=== PATIENT | female | born 1965 | race Caucasian/White ===

== ENCOUNTER 2024-01-19 13:07 | Emergency (ER) | payer MEDICARE, SELFPAY ==
--- NOTE | ~2024-01-19 | XR_ITS ---
EXAMINATION: XR abdomen gastric tube insert DATE: 01/19/2024 15:20 INDICATION: G-tube replacement TECHNIQUE: A supine view of the abdomen and lower chest was obtained for evaluation of feeding tube placement. COMPARISON: None. FINDINGS: Contrast opacifying the stomach having been injected through a previously placed gastrostomy tube wit h lucent filling defect corresponding to the bulb located in the body the stomach. Large amount of co lonic stool consistent with constipation. No dilated gas-filled loops of bowel to suggest obstruction . Suggestion of a suture line projecting along the lesser curvature of the stomach. IMPRESSION: 1. Percutaneous gastrostomy tube and injected contrast in the body the stomach. Reviewed, dictated and finalized at location B. TH AND WELLNESS COACH IMPRESSION: 1. Percutaneous gastrostomy tube and injected contrast in the body the stomach .
[2024-01-19 13:10] VITALS: BP 117/86; PULSE 83; RESP 18; TEMP 36.2; O2SAT 99
--- NOTE | 2024-01-19 13:49 | ED.GENADULT ---
HPI - General Adult General Chief complaint: Recheck/Abnormal Lab/Rx Stated complaint: gtube out Time Seen by Provider: 01/19/24 13:25 History of Present Illness HPI narrative: 58-year-old female presenting with G-tube issues. States that she has had the G-tube for at least 8 years. She has noticed it leaking around the insertion site for the last several days. States this happens whenever it needs to be replaced. Denies any pain or other concerns. Related Data Home Medications Medication Instructions Recorded Confirmed alprazolam 1 mg tablet (Xanax) 1 mg PO TID PRN 07/07/20 quetiapine 200 mg tablet (Seroquel) 200 mg PO QHS 07/07/20 Allergies Allergy/AdvReac Type Severity Reaction Status Date / Time Penicillins Allergy Intermediate rash, Verified 07/07/20 13:22 swelling Review of Systems Review of Systems: All systems reviewed & are unremarkable except as noted in HPI and below PMFSH Social History Social History Smoking status: Current some day smoker Alcohol intake: never Exam Narrative: GENERAL: Chronically ill-appearing, cachectic, cooperative HEAD: Normocephalic, atraumatic. EYES: PERRLA and EOMI. ENT: . Mucous membranes moist. NECK: Supple. CHEST: No respiratory distress. HEART: Regular rate and rhythm ABDOMEN: Soft, G-tube in place, no tenderness EXTREMITIES: Normal range of motion. SKIN: Warm, dry, no rash. NEURO: Alert and oriented x3. PSYCH: Normal mood and affect. Course Vital Signs Vital signs: Vital Signs Temperature 97.2 F L 01/19/24 13:10 Pulse Rate 83 01/19/24 13:10 Respiratory Rate 18 01/19/24 13:10 Blood Pressure 117/86 01/19/24 13:10 Pulse Oximetry 99 01/19/24 13:10 Temperature 97.2 F L 01/19/24 13:10 Pulse Rate 84 01/19/24 16:45 Respiratory Rate 18 01/19/24 16:45 Blood Pressure 115/88 01/19/24 16:45 Pulse Oximetry 99 01/19/24 16:45 Procedures Feeding Tube Replacement Feeding Tube #1: Feeding Tube Placement Date: 01/19/24 Feeding Tube Placement Time: 15:27 Type of Tube: gastrostomy Insertion Site Prior to Procedure: clean Balloon size (mL): 20 Verification of Placement: KUB and gastrografin injection Tube Secured by: tape/dressing Patient Tolerated Procedure: well and no complications Medical Decision Making MDM Narrative Medical decision making narrative: 58-year-old female presenting with leaking around her G-tube. Vitals stable. G-tube replaced without complication. X-ray confirms it is in the stomach. Patient is safe for outpatient management. Appropriate supportive care and return precautions discussed. Discharged in stable condition. Differential Diagnosis Differential Diagnosis: Leaking G-tube, G-tube complication Medical Records Medical records reviewed: Yes I reviewed the external patient's medical records. Vital Signs Vital Signs: Vital Signs Temperature 97.2 F L 01/19/24 13:10 Pulse Rate 83 01/19/24 13:10 Respiratory Rate 18 01/19/24 13:10 Blood Pressure 117/86 01/19/24 13:10 Pulse Oximetry 99 01/19/24 13:10 Temperature 97.2 F L 01/19/24 13:10 Pulse Rate 84 01/19/24 16:45 Respiratory Rate 18 01/19/24 16:45 Blood Pressure 115/88 01/19/24 16:45 Pulse Oximetry 99 01/19/24 16:45 Imaging Data Radiologist's impression: ITS Impressions Abdomen X-Ray 01/19/24 15:21 IMPRESSION: 1. Percutaneous gastrostomy tube and injected contrast in the body the stomach. Critical Care Time Critical Care Time Critical Care Time: No Discharge Plan Discharge Clinical Impression: Drainage from gastrostomy tube site Patient Disposition: NH Care Home/Asst Living Condition: Stable Instructions: Antibiotic Form, How to Use and Care for Your PEG Tube (DC) Additional Instructions: Please follow-up with your PCP. If your symptoms worsen or other concerning symptoms arise, please return to the ER. Prescriptions: No Action alprazolam [Xanax] 1 mg tablet 1 mg PO TID PRN quetiapine [Seroquel] 200 mg tablet 200 mg PO QHS hydrocodone-acetaminophen 7.5-325 mg tablet 1 tablet PO Q4H PRN (Reason: pain (scale score 7-10)) Qty: 84 0RF Rx Instructions: To last 14 days, due 11/22/2020 Follow-up/Referrals: UNKNOWN,DOCTOR [Primary Care Provider] -
--- NOTE | 2024-01-19 15:52 | PC.NURSE ---
20 F G tube replaced by Dr. Lopez.
--- NOTE | 2024-01-19 16:16 | PCCCNOTE ---
Call received from nursing staff for cab voucher as pt ready to discharge back to facility and the facility is no longer operating today. Cab voucher supplied for transportation back to [facility].
[2024-01-19 16:45] VITALS: BP 115/88; PULSE 84; RESP 18; O2SAT 99
== END 2024-01-19 16:48 ==
PROVIDERS: Emergency Provider Emergency Medicine
DX: K94.23 Gastrostomy malfunction (principal); F17.200 Nicotine dependence, unspecified, uncomplicated; Y83.3 Surgical operation with formation of external stoma as the cause of abnormal reaction of the patient, or of later complication, without mention of misadventure at the time of the procedure
CPT/HCPCS: 43762; 99283

== ENCOUNTER 2024-01-30 07:57 | Outpatient (CLI) | payer MEDICARE, SELFPAY ==
--- NOTE | ~2024-01-30 | XR_ITS ---
EXAMINATION: XR barium swallow modified DATE: 01/30/2024 08:51 INDICATION: Dysphagia. Achalasia. TECHNIQUE: The patient was given barium-containing material of multiple consistencies to swallow by t cynthia speech pathologist while I performed fluoroscopy. Fluoroscopy exposure time was 0.7 minutes. The n umber of fluoroscopy images saved to the PACS was 1. Dose-area product was 0.399 Gy-cm^2. FINDINGS: There is a reduced laryngeal elevation, reduced laryngeal adduction, reduced tongue base retraction, reduced pharyngeal squeeze, vallecular residue, pyriform sinus residue, and laryngeal penetration. Th ere is aspiration of thin liquids, mildly thick liquids, and pudding. IMPRESSION: 1. Aspiration. 2. Please refer to the speech therapy report for recommendations. Reviewed, dictated and finalized at location A. TATISTICIAN
--- NOTE | 2024-01-30 14:05 | REHSTMBS ---
Assessment and note entered by Ermelinda Minor SENIOR CLINICAL DATA ANALYST Modified Barium Swallow Evaluation Feeding Type Recommended Non-Oral ST Clinical Summary MODIFIED BARIUM SWALLOW STUDY This patient was seen for a Modified Barium Swallow study at the request of her physician. Patient did not report significant history but did state she had an esophageal issue for eight years. The patient reports she is on tube feedings but that she had been allowed warm drinks, that would go down easily, would not want [id number] foods such as chicken. Patient was viewed in the lateral position to the level of C5/C6. Patient was presented with 1/3-1/2 teaspoons of thin liquid contrast medium, mildly thick liquid contrast medium, and pudding mixed with semi-solid contrast medium. On each occasion, patient allowed material to fall over the base of tongue into the valleculae, and then spillover into the pyriform sinuses, with penetration leading all the way to the level of the vocal cords on each presentation. No cough was triggered however when asked to cough, some of the material did clear the airway. Testing was terminated. Results suggest this patient remains at significant risk for aspiration on oral feedings. Cause of weakness is unknown at this time. Results indicate patient should not resume oral feedings but may benefit from direct Speech Therapy to address strengthening of the swallowing muscles. Please order Speech Therapy for patient at [facility]. Thank you for this referral. Thank you for this referral.
== END 2024-01-30 07:58 | disposition home or self-care (01) ==
PROVIDERS: Visit Provider Internal Medicine
DX: K22.0 Achalasia of cardia (principal)
CPT/HCPCS: 92611

== ENCOUNTER 2024-05-10 14:17 | Emergency (ER) | payer MEDICARE, MEDICAID, SELFPAY ==
[2024-05-10] VITALS (14 sets, daily range): BP systolic 111–147; BP diastolic 68–100; PULSE 79–93; RESP 14–20; TEMP 36.5; O2SAT 95–99
--- NOTE | ~2024-05-10 | XR_ITS ---
Exam: Abdomen 1V HISTORY: 22f gastrostomy tube reinsertion, performed in the emergency department COMPARISON: 01/19/2024 TECHNIQUE: Supine images of the lower chest and upper abdomen FINDINGS: Gastrostomy tube extends into the left upper quadrant. Oral contrast opacifies the stomach and proximal small bowel IMPRESSION: Gastrostomy tube in good position and ready for immediate use. Reviewed, dictated and finalized at location A.
--- OUTSIDE RECORDS SUMMARY | 2024-05-10 17:38 | XMS_ITS | CONTINUITY OF CARE DOCUMENT ---
Author Name amy reyes Address Unknown Organization [facility] Address [address] [place] [address] Phone [phone] Care Team Providers Care Geoscientist Name Role Phone Ottoniel Peguero MD Unavailable JEB LA MD Unavailable [phone] INSURANCE PROVIDERS Payer name Policy type / Coverage type [place] [employer] Medicaid [id number]
--- NOTE | 2024-05-10 23:38 | ED_ITS ---
HPI - General Adult General Chief complaint: Unspecified Stated complaint: g-tube replacement Time Seen by Provider: 05/10/24 16:29 History of Present Illness HPI narrative: 59-year-old female presenting from long term facility for concerns of a malfunctioning and dislodged G-tube. Patient wears a 20 [place] G-tube normally, was malfunctioning and taken out today and a 24 [place] Miller catheter was placed to hold the stoma open. G-tube has been placed for 8 years without any recent manipulation. Last time this happened was 5 months prior according to patient. No other complaints at this time she was otherwise in her normal state of health and awake alert oriented. Related Data Home Medications ?Medication ?Instructions ?Recorded ?Confirmed ?Last Taken ?Type alprazolam 1 mg tablet (Xanax) 1 mg PO TID PRN 07/07/20 Unknown History quetiapine 200 mg tablet (Seroquel) 200 mg PO QHS 07/07/20 Unknown History Allergies Allergy/AdvReac Type Severity Reaction Status Date / Time Penicillins Allergy Intermediate rash, Verified 05/10/24 14:27 swelling gabapentin AdvReac Mild Hives Verified 05/10/24 14:27 simvastatin AdvReac Mild Unknown Verified 05/10/24 14:27 Review of Systems Review of Systems: As reviewed above in [facility] Social History Social History Smoking status: Current some day smoker Alcohol intake: never Exam Narrative: GENERAL: [Well-appearing, well-nourished, and in no acute distress.] HEAD: [Normocephalic, atraumatic.] EYES: [PERRLA and EOMI.] ENT: Nares clear, no rhinorrhea or epistaxis. Mucous membranes moist. NECK: Supple. CHEST: [Clear to auscultation. No respiratory distress.] HEART: [Regular rate and rhythm]. No murmur heard. [Normal peripheral pulses.] ABDOMEN: [Soft, nondistended], [nontender], [No rigidity or guarding] stoma without any erythema, bleeding. Twenty-four [place] Miller in place into the gastrostomy site EXTREMITIES: Normal range of motion. [No edema.] SKIN: Warm, dry, no rash. NEURO: [No focal deficits]. Alert and oriented [x3.] PSYCH: [Normal mood and affect.] Course Vital Signs Vital signs: Vital Signs Temperature 36.5 C 05/10/24 14:18 Pulse Rate 90 05/10/24 14:18 Respiratory Rate 19 05/10/24 14:18 Blood Pressure 133/96 H 05/10/24 14:18 Pulse Oximetry 97 05/10/24 14:18 Oxygen Delivery Room Air 05/10/24 14:18 Temperature 36.5 C 05/10/24 14:18 Pulse Rate 87 05/10/24 19:03 Respiratory Rate 17 05/10/24 19:03 Blood Pressure 147/96 H 05/10/24 17:30 Pulse Oximetry 98 05/10/24 19:03 Oxygen Delivery Room Air 05/10/24 14:18 Procedures Feeding Tube Replacement Feeding Tube #1: Feeding Tube Placement Date: 05/10/24 Feeding Tube Placement Time: 17:00 Type of Tube: gastrostomy Insertion Site Prior to Procedure: clean Tube Used for Reinsertion: other (Zumper) [place] Tube Size (F): 20 Balloon size (mL): 20 Verification of Placement: gastrografin injection Tube Secured by: tape/dressing Patient Tolerated Procedure: well and no complications Medical Decision Making MDM Narrative Medical decision making narrative: 59-year-old female presenting with a malfunctioned G-tube that was taken out at the nursing facility and a Miller replaced into the stoma site. No bleeding or irritation. No signs of infection. G-tube replaced without complication x-ray confirms its placement into the stomach. Patient is safe for outpatient follow- up with her doctor. Patient discharged with return precautions. Vital Signs Vital Signs: Vital Signs Temperature 36.5 C 05/10/24 14:18 Pulse Rate 90 05/10/24 14:18 Respiratory Rate 19 05/10/24 14:18 Blood Pressure 133/96 H 05/10/24 14:18 Pulse Oximetry 97 05/10/24 14:18 Oxygen Delivery Room Air 05/10/24 14:18 Temperature 36.5 C 05/10/24 14:18 Pulse Rate 87 05/10/24 19:03 Respiratory Rate 17 05/10/24 19:03 Blood Pressure 147/96 H 05/10/24 17:30 Pulse Oximetry 98 05/10/24 19:03 Oxygen Delivery Room Air 05/10/24 14:18 Imaging Data Attestation: I personally reviewed and interpreted this imaging study as follows: My impression: Impressions Abdomen X-Ray 05/10/24 17:46 IMPRESSION: Gastrostomy tube in good position and ready for immediate use. Discharge Plan Discharge Clinical Impression: Gastrojejunostomy tube dislodgement Patient Disposition: Home, Self-Care Condition: Stable Instructions: Antibiotic Form, PEG (Percutaneous Endoscopic Gastrostomy) Tube Insertion (DC) Additional Instructions: We have replaced her G-tube with a 20 [place] tube and confirmed displacement on x-ray. It can be used immediately upon return to her facility. Follow-up with regular doctor. Return with any new or worsening concerns at any time. Patient Language: Kinyarwanda Prescriptions: No Action alprazolam [Xanax] 1 mg tablet 1 mg PO TID PRN quetiapine [Seroquel] 200 mg tablet 200 mg PO QHS hydrocodone-acetaminophen 7.5-325 mg tablet 1 tablet PO Q4H PRN (Reason: pain (scale score 7-10)) Qty: 84 0RF Rx Instructions: To last 14 days, due 11/22/2020 Follow-up/Referrals: UNKNOWN,DOCTOR [Primary Care Provider] - Time of Disposition: 18:43
== END 2024-05-10 19:00 ==
PROVIDERS: Emergency Provider Student in an Organized Health Care Education/Training Program
DX: Z43.1 Encounter for attention to gastrostomy (principal); F17.200 Nicotine dependence, unspecified, uncomplicated; Z79.899 Other long term (current) drug therapy
CPT/HCPCS: 43762; 99283

== ENCOUNTER 2025-01-28 02:24 | Inpatient (IN) | payer MEDICARE, MEDICAID, SELFPAY ==
[2025-01-28] VITALS (22 sets, daily range): BP systolic 143–220; BP diastolic 98–132; PULSE 82–108; RESP 18–24; TEMP 36.4–36.9; O2SAT 95–99; BMI 23.0
--- NOTE | ~2025-01-28 | CT_ITS ---
EXAMINATION: CT abdomen pelvis w con DATE: 01/28/2025 04:39 INDICATION: Abdominal pain. TECHNIQUE: Computed tomography (CT) of the abdomen and pelvis was performed with 100 mL Omnipaque 350 intravenous contrast. Automated exposure control and iterative reconstruction technique were employed. The dose-length product was 233.52 mGy-cm. COMPARISON: None. FINDINGS: The visualized portions of the lung bases demonstrate mild atelectasis. No pleural effusion. There is fluid in the esophagus, which is patulous. There is wall thickening of the esophagus. There is a gastrostomy tube in expected position. There is mild intrahepatic biliary duct dilatation. The common duct is dilated to 16 mm. The gallbladder is absent. The pancreas demonstrates heterogeneous hypodensity. There is fat stranding and fluid around the pancreas, consistent with pancreatitis. The spleen and adrenal glands are normal. There is cortical thinning of the kidneys. There are no dilated loops of bowel. The appendix is normal. There are no pathologically enlarged lymph nodes. 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 There is severe lumbar spondylosis. IMPRESSION: 1. Acute necrotic pancreatitis. 2. Wall thickening in the esophagus, consistent with edema versus esophagitis. 3. Mild intrahepatic and extrahepatic biliary duct dilatation status post cholecystectomy. Reviewed, dictated and finalized at location E. AND RAIL OPERATOR IMPRESSION: 1. Acute necrotic pancreatitis. 2. Wall thickening in the esophagus, consistent with edema versus esophagitis. 3. Mild intrahepatic and extrahepatic biliary duct dilatation status post kaley cystectomy.
--- NOTE | ~2025-01-28 | MR_ITS ---
EXAMINATION: MR MRCP wo/w con/w 3D wo ind DATE: 01/29/2025 09:04 INDICATION: Pancreatitis and common bile duct dilation TECHNIQUE: Magnetic resonance imaging (MRI) of the abdomen was performed without and with 12 mL Multihance intravenous contrast. Sequences included coronal T2- weighted SS-FSE, coronal T2-weighted FS SS-FSE, coronal T2-weighted FS FIESTA, axial T2-weighted FS FIESTA, axial T2-weighted FIESTA, sagittal T2-weighted SS- FSE, axial T1-weighted dual-echo FSPGR, axial T2-weighted SS-FSE, axial T1- weighted LAVA, axial T2-weighted STIR FSE. Thick-slab T2-weighted FRFSE-XL images were obtained for magnetic resonance cholangiopancreatography (MRCP). Rotating maximum intensity projection 3-D reconstructions of the volumetric data were created by the technologist. Postcontrast sequences included a time course of axial T1-weighted LAVA. COMPARISON: CT dated 01/28/2025 FINDINGS: ABDOMEN MRI: Heart size is normal. No pericardial effusion. Mild dependent atelectasis in both lungs. No pleural effusion. Postoperative change of prior right mastectomy. Wall thickening and prominent dilation of the fluid-filled esophagus extending to the gastroesophageal junction with metallic artifact associated with a few surgical clips at the thoracic hiatus. Percutaneous gastrostomy tube bulb in the body of the stomach. Mild central intrahepatic biliary ductal dilation. Liver is otherwise unremarkable. The gallbladder is nonvisualized and likely surgically absent. Spleen, bilateral adrenal glands and kidneys are normal. There is prominent peripancreatic stranding and edema consistent with acute interstitial pancreatitis. There is approximately 1 cm nonenhancing region at the tail of the pancreas which does not appear to correspond to a fluid collection with intermediate T1 and T2 signal suggesting a small region of parenchymal necrosis. Additional retroperitoneal stranding extends laterally to the left and right paracolic gutters. No discrete loculated acute peripancreatic fluid collections, abscess or pseudocyst. Visual is portions of bowels are unremarkable. There are a couple mildly enlarged gastrohepatic lymph nodes, the largest measuring 1.4 cm in diameter. Small amount of ascites in the cul-de-sac. Anteverted uterus and the visualized abdomen to the bladder are unremarkable. Moderate lumbar s pondylosis. ABDOMEN MRCP: Mild central intrahepatic biliary ductal dilation. The common hepatic duct is dilated to 1.5 cm. The common bile duct measures 1.2 cm. The dose tapers abruptly at the ampulla without evident obstructing stone or mass. No choledocholithiasis. There is also a dilated cystic duct remnant. IMPRESSION: 1. Status post cholecystectomy with mild intrahepatic ductal or ductal dilation and moderately dilated common hepatic and bile ducts without evident obstructing stone or mass. 2. Acute interstitial pancreatitis with 1 cm nonenhancing region of likely parenchymal necrosis at the tail of the pancreas. 3. Extensive peripancreatic and retroperitoneal edema and small amount of likely reactive ascites in the pelvis. No abscess. 4. Wall thickening along the patulous fluid-filled esophagus which suggests esophagitis. 5.. Additional postoperative change of prior right mastectomy, percutaneous gastrostomy tube placement and surgical clips at the thoracic hiatus. Reviewed, dictated and finalized at location A. CH AND LANGUAGE ASSISTANT IMPRESSION: 1. Status post cholecystectomy with mild intrahepatic ductal or ductal dilation and moderately dilated common hepatic and bile ducts without evident obstructi ng stone or mass. 2. Acute interstitial pancreatitis with 1 cm nonenhancing region of likely pare nchymal necrosis at the tail of the pancreas. 3. Extensive peripancreatic and retroperitoneal edema and small amount of likel y reactive ascites in the pelvis. No abscess. 4. Wall thickening along the patulous fluid-filled esophagus which suggests eso phagitis. 5.. Additional postoperative change of prior right mastectomy, percutaneous gas trostomy tube placement and surgical clips at the thoracic hiatus.
--- NOTE | ~2025-01-28 | XR_ITS ---
EXAMINATION: XR barium swallow DATE: 01/30/2025 11:12 INDICATION: Achalasia TECHNIQUE: The patient drank thick barium, gas-producing crystals, and thin barium. Fluoroscopic spot radiographs of the hypopharynx and esophagus were obtained. A total of 1170 fluoroscopic images were recorded. Fluoroscopy exposure time was 2.0 minutes. Total DAP was 6.153 Gycm^2. COMPARISON: None. FINDINGS: The pharynx is symmetric and without evidence of mass lesion or mucosal irregularity. The esophagus is is patulous but without mass or stricture. Esophageal dysmotility with negligible esophageal contractility in the mid to distal esophagus. There is delayed passage of contrast into the stoma ch with abrupt beak shape narrowing at the gastroesophageal junction with smooth mucosal margins. There is intermittent relaxation of the chest esophageal junction allowing intermittent passage of small amounts of contrast into the stomach. Findings consistent with provided history of achalasia. The lumen of the gastroesophageal junction region of maximal diameter of 7 x 6 mm. There is no hiatal hernia. There was no gastroesophageal reflux with provocative maneuvers. IMPRESSION: 1. Patulous esophagus with prominent dysmotility mid to distal esophagus likely secondary to chronic achalasia with delayed intermittent passage of small amounts of contrast beyond the gastroesophageal junction. Reviewed, dictated and finalized at location A. ION HAND IMPRESSION: 1. Patulous esophagus with prominent dysmotility mid to distal esophagus likely secondary to chronic achalasia with delayed intermittent passage of small amou nts of contrast beyond the gastroesophageal junction.
[2025-01-28] MEDS: SODIUM CHLORIDE 0.9% IV 1,000 ML 999 ML IV CONT (03:21)
[2025-01-28] MEDS: ONDANSETRON INJ 4 MG/2 ML VIAL IV PUSH (03:23)
[2025-01-28] MEDS: MORPHINE SULFATE (*CRX) 4 MG/ML INJ IV PUSH (03:24)
[2025-01-28 03:49] LABS: Hematocrit 44.9 % (37.0-47.0); Hemoglobin 15.1 g/dL (12.0-15.0); Immature Granulocyte Percent A 0.5 % (0-0.5); Lymphocytes Absolute Auto 0.70 K/mm3 (0.9-3.2); Mean Corpuscular HGB Conc 33.6 g/dl (32-36); Mean Corpuscular Hemoglobin 30.4 pg (26-34); Mean Corpuscular Volume 90.5 fl (80-100); Nucleated Red Blood Cells Absolute Auto 0.000 K/mm3 (0.0-0.012); Nucleated Red Blood Cells Perc 0.0 % (0.0-0.2); Platelet Count Result 389 k/mm3 (150-375); Red Blood Count 4.96 M/mm3 (4.2-5.4); White Blood Count 11.8 K/mm3 (4.5-10.0)
[2025-01-28 04:07] LABS: Alanine Aminotransferase 38 U/L (6-35); Albumin Level 3.8 g/dL (3.5-5.1); Alkaline Phosphatase 183 U/L (38-126); Anion Gap 6 mmol/L (4-12); Aspartate Amino Transferase 57 U/L (14-36); Bilirubin,Total 0.6 mg/dL (0.2-1.3); Blood Urea Nitrogen 16 mg/dL (7-17); Calcium 9.3 mg/dL (8.4-10.2); Carbon Dioxide 27 mmol/L (22-30); Chloride 104 mmol/L (98-107); Estimated CRCL calculation 57 ml/min; Estimated Glomerular Filt Rate > 60; Glucose 132 mg/dL (65-110); Magnesium 2.0 mg/dL (1.6-2.3); Potassium 3.2 mmol/L (3.4-5.0); Sodium 137 mmol/L (137-145); Total Protein 8.2 g/dL (6.3-8.2)
[2025-01-28] MEDS: HYDROmorphone HCL INJ (*CRX) 1 MG/ML SYR IV PUSH ×7 (04:15→23:35)
[2025-01-28 04:40] LABS: Add Urine Microscopic? YES; Appearance Urine Clear (Clear); Glucose Urine UA Negative (Negative); Leukocyte Esterase Ur Negative LEU/UL (Negative); Nitrate Urine Negative (Negative); Non Pathogenic Casts 0-2; Specific Grav Ur 1.011 (1.001-1.035)
[2025-01-28 04:43] LABS: Lipase 7371 U/L (23-300)
--- NOTE | 2025-01-28 04:53 | ED.GENADULT ---
HPI - General Adult General Chief complaint: Abdominal Pain <Vitor Winters MD - Last Filed: 01/28/25 06:10> Stated complaint: abd pain <Vitor Winters MD - Last Filed: 01/28/25 06:10> Time Seen by Provider: 01/28/25 02:45 <Vitor Winters MD - Last Filed: 01/28/25 06:10> History of Present Illness HPI narrative: Patient 59-year-old female who presents emergency department with chief complaint of abdominal pain. Patient reports he has history of G-tube in reports that she has had severe pain throughout her abdomen started approximately 2 hours ago patient reports that pain is not improved by anything reports that it feels as though her abdomen is just extremely uncomfortable <Vitor Winters MD - Last Filed: 01/28/25 06:10> Related Data Home medications: Home Medications ?Medication ?Instructions ?Recorded ?Confirmed ?Last Taken ?Type alprazolam 1 mg tablet (Xanax) 1 mg PO TID PRN 07/07/20 Unknown History quetiapine 200 mg tablet (Seroquel) 200 mg PO QHS 07/07/20 Unknown History <Vitor Winters MD - Last Filed: 01/28/25 06:10> Allergies/adverse reactions: Allergies Allergy/AdvReac Type Severity Reaction Status Date / Time Penicillins Allergy Intermediate rash, Verified 01/28/25 07:50 swelling gabapentin AdvReac Mild Hives Verified 01/28/25 07:50 simvastatin AdvReac Mild Unknown Verified 01/28/25 07:50 <Vitor Winters MD - Last Filed: 01/28/25 06:10> Review of Systems Review of Systems: A 10 system review of systems was completed on the patient and is negative except for what is stated in the HPI. Nursing and ancillary documentation was reviewed. <Vitor Winters MD - Last Filed: 01/28/25 06:10> [facility]LY [facility] Social History Social History: Social History Smoking status: Current some day smoker Alcohol intake: never <Vitor Winters MD - Last Filed: 01/28/25 06:10> Exam Narrative: GENERAL: Well-appearing, well-nourished, and in moderate acute pain distress. HEAD: Normocephalic, atraumatic. EYES: PERRLA and EOMI. ENT: Nares clear, no rhinorrhea or epistaxis. Mucous membranes dry. NECK: Supple. CHEST: Clear to auscultation. No respiratory distress. HEART: Regular rate and rhythm. No murmur heard. Normal peripheral pulses. ABDOMEN: Soft, diffusely tender throughout the abdomen, nondistended, normal active bowel sounds. G-tube in place EXTREMITIES: Normal range of motion. No edema. SKIN: Warm, dry, no rash. NEURO: No focal deficits. Alert and oriented x3. PSYCH: Normal mood and affect. <Vitor Winters MD - Last Filed: 01/28/25 06:10> Course Vital Signs Vital signs: Vital Signs Temperature 97.6 F 01/28/25 02:28 Pulse Rate 95 01/28/25 02:28 Respiratory Rate 20 01/28/25 02:28 Blood Pressure 187/118 H 01/28/25 02:28 Pulse Oximetry 97 01/28/25 02:28 Oxygen Delivery Room Air 01/28/25 02:28 Temperature 97.6 F 01/28/25 02:28 Pulse Rate 97 01/28/25 07:57 Respiratory Rate 18 01/28/25 07:57 Blood Pressure 179/131 H 01/28/25 07:57 Pulse Oximetry 96 01/28/25 07:57 Oxygen Delivery Room Air 01/28/25 02:28 <Vitor Winters MD - Last Filed: 01/28/25 06:10> Vital Signs Temperature 97.6 F 01/28/25 02:28 Pulse Rate 95 01/28/25 02:28 Respiratory Rate 20 01/28/25 02:28 Blood Pressure 187/118 H 01/28/25 02:28 Pulse Oximetry 97 01/28/25 02:28 Oxygen Delivery Room Air 01/28/25 02:28 Temperature 97.6 F 01/28/25 02:28 Pulse Rate 97 01/28/25 07:57 Respiratory Rate 18 01/28/25 07:57 Blood Pressure 179/131 H 01/28/25 07:57 Pulse Oximetry 96 01/28/25 07:57 Oxygen Delivery Room Air 01/28/25 02:28 <Wendie Coto MD - Last Filed: 01/28/25 08:23> Medical Decision Making [facility] Narrative Medical decision making narrative: Differential diagnosis includes intra-abdominal infection, diverticulitis, colitis, pancreatitis, Laboratory studies were obtained showed white count 11.8 electrolytes showed a potassium of 3.2 lactic acid was 1.3 AST and ALT were slightly elevated at 57 and 38 respectively alk-phos was 183 bilirubin was normal at 0.6 lipase was elevated at 7371 urinalysis showed no evidence UTI there was 3+ protein CT scan of the abdomen pelvis has been ordered and the patient has received IV fluids antiemetics and pain control <Vitor Winters MD - Last Filed: 01/28/25 06:10> Differential diagnosis includes intra-abdominal infection, diverticulitis, colitis, pancreatitis, Laboratory studies were obtained showed white count 11.8 electrolytes showed a potassium of 3.2 lactic acid was 1.3 AST and ALT were slightly elevated at 57 and 38 respectively alk-phos was 183 bilirubin was normal at 0.6 lipase was elevated at 7371 urinalysis showed no evidence UTI there was 3+ protein CT scan of the abdomen pelvis has been ordered and the patient has received IV fluids antiemetics and pain control // CT showing pancreatitis; she does not drink ETOH and her GB has been removed. D/w hospitalist who would like better BP control and GI consult, d/w GI who recommends IVF and will consult. D/w pt, she initially voiced intent on wanting to go home, I discussed her findings and my concern that she needs better pain control, she agrees to stay. She is still having intense pain so additional pain medication ordered. Very small dose of BP meds given. <Wendie Coto MD - Last Filed: 01/28/25 08:23> Vital Signs Vital Signs: Vital Signs Temperature 97.6 F 01/28/25 02:28 Pulse Rate 95 01/28/25 02:28 Respiratory Rate 20 01/28/25 02:28 Blood Pressure 187/118 H 01/28/25 02:28 Pulse Oximetry 97 01/28/25 02:28 Oxygen Delivery Room Air 01/28/25 02:28 Temperature 97.6 F 01/28/25 02:28 Pulse Rate 97 12/01/25 07:57 Respiratory Rate 18 01/28/25 07:57 Blood Pressure 179/131 H 01/28/25 07:57 Pulse Oximetry 96 01/28/25 07:57 Oxygen Delivery Room Air 01/28/25 02:28 <Vitor Winters MD - Last Filed: 01/28/25 06:10> Vital Signs Temperature 97.6 F 01/28/25 02:28 Pulse Rate 95 01/28/25 02:28 Respiratory Rate 20 01/28/25 02:28 Blood Pressure 187/118 H 01/28/25 02:28 Pulse Oximetry 97 01/28/25 02:28 Oxygen Delivery Room Air 01/28/25 02:28 Temperature 97.6 F 01/28/25 02:28 Pulse Rate 97 01/28/25 07:57 Respiratory Rate 18 01/28/25 07:57 Blood Pressure 179/131 H 01/28/25 07:57 Pulse Oximetry 96 01/28/25 07:57 Oxygen Delivery Room Air 01/28/25 02:28 <Wendie Coto MD - Last Filed: 01/28/25 08:23> Lab Data Result diagrams: 01/28/25 03:38 01/28/25 03:38 <Vitor Winters MD - Last Filed: 01/28/25 06:10> Labs: Lab Results 01/28/25 01/28/25 Range/Units 03:38 04:23 WBC 11.8 H (4.5-10.0) K/mm3 RBC 4.96 (4.2-5.4) M/mm3 Hgb 15.1 H (12.0-15.0) g/dL Hct 44.9 (37.0-47.0) % MCV 90.5 (80-100) fl MCH 30.4 (26-34) pg MCHC 33.6 (32-36) g/dl RDW 15.8 H (11.5-14.5) % Plt Count 389 H (150-375) k/mm3 MPV 9.5 (7.4-10.4) fl Immature Gran % (Auto) 0.5 (0-0.5) % Neut % (Auto) 89.7 H (45.5-73.1) % Lymph % (Auto) 5.9 L (18.3-44.2) % [place] % (Auto) 3.6 (2.6-8.5) % Eos % (Auto) 0.0 (0-4.4) % Baso % (Auto) 0.3 (0.2-1.2) % Lymph # (Auto) 0.70 L (0.9-3.2) K/mm3 [place] # (Auto) 0.4 (0.1-0.6) K/mm3 Eos # (Auto) 0.0 (0-0.3) K/mm3 Baso # (Auto) 0.0 (0.0-0.1) K/mm3 Abs Immat Gran (auto) 0.06 H (0.00-0.031) K/mm3 Absolute Neuts (auto) 10.6 H (1.3-6.7) K/mm3 Absolute Nucleated RBC 0.000 (0.0-0.012) K/mm3 Nucleated RBC % 0.0 (0.0-0.2) % Sodium 137 (137-145) mmol/L Potassium 3.2 L (3.4-5.0) mmol/L Chloride 104 (98-107) mmol/L Carbon Dioxide 27 (22-30) mmol/L Anion Gap 6 (4-12) mmol/L BUN 16 (7-17) mg/dL Creatinine 0.71 (0.7-1.0) mg/dL Estim Creat Clear Calc 57 ml/min Estimated GFR > 60 (59 - ) Glucose 132 H (65-110) mg/dL Lactic Acid 1.3 (0.7-2.0) mmol/L Calcium 9.3 (8.4-10.2) mg/dL Magnesium 2.0 (1.6-2.3) mg/dL Total Bilirubin 0.6 (0.2-1.3) mg/dL AST 57 H (14-36) U/L ALT 38 H (6-35) U/L Alkaline Phosphatase 183 H (38-126) U/L Total Protein 8.2 (6.3-8.2) g/dL Albumin 3.8 (3.5-5.1) g/dL Lipase 7371 H (23-300) U/L Urine Color Yellow (Yellow) Urine Appearance Clear (Clear) Urine pH 7.5 (5.0-9.0) Ur Specific [place] 1.011 (1.001-1.035) Urine Protein 3+ H (Negative) mg/dL Urine Glucose (UA) Negative (Negative) mg/dL Urine Ketones Negative (Negative) mg/dL Ur Blood (Man) Negative (Negative) Urine Nitrate Negative (Negative) Urine Bilirubin Negative (Negative) Urine Urobilinogen 1.0 (<2.0) mg/dL Leukocyte Esterase Rfl Negative (Negative) ALISSA/UL Urine RBC 0-2 (0-2) /hpf Urine WBC 0-5 (0-3) /hpf Ur Squamous Epith Cells None seen (Few) /hpf Urine Bacteria None seen /hpf Urine Casts 0-2 <Vitor Winters MD - Last Filed: 01/28/25 06:10> Lab Results 01/28/25 01/28/25 Range/Units 03:38 04:23 WBC 11.8 H (4.5-10.0) K/mm3 RBC 4.96 (4.2-5.4) M/mm3 Hgb 15.1 H (12.0-15.0) g/dL Hct 44.9 (37.0-47.0) % MCV 90.5 (80-100) fl MCH 30.4 (26-34) pg MCHC 33.6 (32-36) g/dl RDW 15.8 H (11.5-14.5) % Plt Count 389 H (150-375) k/mm3 MPV 9.5 (7.4-10.4) fl Immature Gran % (Auto) 0.5 (0-0.5) % Neut % (Auto) 89.7 H (45.5-73.1) % Lymph % (Auto) 5.9 L (18.3-44.2) % [place] % (Auto) 3.6 (2.6-8.5) % Eos % (Auto) 0.0 (0-4.4) % Baso % (Auto) 0.3 (0.2-1.2) % Lymph # (Auto) 0.70 L (0.9-3.2) K/mm3 [place] # (Auto) 0.4 (0.1-0.6) K/mm3 Eos # (Auto) 0.0 (0-0.3) K/mm3 Baso # (Auto) 0.0 (0.0-0.1) K/mm3 Abs Immat Gran (auto) 0.06 H (0.00-0.031) K/mm3 Absolute Neuts (auto) 10.6 H (1.3-6.7) K/mm3 Absolute Nucleated RBC 0.000 (0.0-0.012) K/mm3 Nucleated RBC % 0.0 (0.0-0.2) % Sodium 137 (137-145) mmol/L Potassium 3.2 L (3.4-5.0) mmol/L Chloride 104 (98-107) mmol/L Carbon Dioxide 27 (22-30) mmol/L Anion Gap 6 (4-12) mmol/L BUN 16 (7-17) mg/dL Creatinine 0.71 (0.7-1.0) mg/dL Estim Creat Clear Calc 57 ml/min Estimated GFR > 60 (59 - ) Glucose 132 H (65-110) mg/dL Lactic Acid 1.3 (0.7-2.0) mmol/L Calcium 9.3 (8.4-10.2) mg/dL Magnesium 2.0 (1.6-2.3) mg/dL Total Bilirubin 0.6 (0.2-1.3) mg/dL AST 57 H (14-36) U/L ALT 38 H (6-35) U/L Alkaline Phosphatase 183 H (38-126) U/L Total Protein 8.2 (6.3-8.2) g/dL Albumin 3.8 (3.5-5.1) g/dL Lipase 7371 H (23-300) U/L Urine Color Yellow (Yellow) Urine Appearance Clear (Clear) Urine pH 7.5 (5.0-9.0) Ur Specific [place] 1.011 (1.001-1.035) Urine Protein 3+ H (Negative) mg/dL Urine Glucose (UA) Negative (Negative) mg/dL Urine Ketones Negative (Negative) mg/dL Ur Blood (Man) Negative (Negative) Urine Nitrate Negative (Negative) Urine Bilirubin Negative (Negative) Urine Urobilinogen 1.0 (<2.0) mg/dL Leukocyte Esterase Rfl Negative (Negative) ALISSA/UL Urine RBC 0-2 (0-2) /hpf Urine WBC 0-5 (0-3) /hpf Ur Squamous Epith Cells None seen (Few) /hpf Urine Bacteria None seen /hpf Urine Casts 0-2 <Wendie Coto MD - Last Filed: 01/28/25 08:23> Discharge Plan Discharge Clinical Impression: Acute pancreatitis <Vitor Winters MD - Last Filed: 01/28/25 06:10> Patient Disposition: Still a Patient <Vitor Winters MD - Last Filed: 01/28/25 06:10> Condition: Stable <Vitor Winters MD - Last Filed: 01/28/25 06:10> Instructions: Antibiotic Form <Vitor Winters MD - Last Filed: 01/28/25 06:10> Patient Language: Polish <Vitor Winters MD - Last Filed: 01/28/25 06:10> Prescriptions: No Action alprazolam [Xanax] 1 mg tablet 1 mg PO TID PRN quetiapine [Seroquel] 200 mg tablet 200 mg PO QHS hydrocodone-acetaminophen 7.5-325 mg tablet 1 tablet PO Q4H PRN (Reason: pain (scale score 7-10)) Qty: 84 0RF Rx Instructions: To last 14 days, due 11/22/2020 <Vitor Winters MD - Last Filed: 01/28/25 06:10> Follow-up/Referrals: UNKNOWN,DOCTOR [Primary Care Provider] <Vitor Winters MD - Last Filed: 01/28/25 06:10>
[2025-01-28] MEDS: LACTATED RINGERS 1,000 ML 999 ML IV CONT (07:58)
[2025-01-28] MEDS: PANTOPRAZOLE SODIUM IV 40 MG VIAL IV PUSH (08:15)
--- NOTE | 2025-01-28 08:17 | WPDGICN ---
Assessment and Plan Assessment and plan (1) Acute pancreatitis: Qualifiers: Pancreatitis type: idiopathic Acute pancreatitis complication: uninfected necrosis Qualified Code(s): K85.01 - Idiopathic acute pancreatitis with uninfected necrosis Code(s): K85.90 - Acute pancreatitis without necrosis or infection, unspecified Status: Acute (2) Abdominal pain: Qualifiers: Abdominal location: generalized Qualified Code(s): R10.84 - Generalized abdominal pain Code(s): R10.9 - Unspecified abdominal pain Status: Acute (3) Elevated LFTs: Code(s): R79.89 - Other specified abnormal findings of blood chemistry Status: Acute (4) Elevated lipase: Code(s): R74.8 - Abnormal levels of other serum enzymes Status: Acute (5) Dilated cbd, acquired: Code(s): K83.8 - Other specified diseases of biliary tract Status: Acute (6) Abnormal digestive system diagnostic imaging: Code(s): R93.3 - Abnormal findings on diagnostic imaging of other parts of digestive tract Status: Acute (7) Esophageal abnormality: Code(s): K22.9 - Disease of esophagus, unspecified Status: Acute (8) Gastrostomy tube in place: Code(s): Z93.1 - Gastrostomy status Status: Acute Plan 1. Pancreatitis/abdominal pain/elevated LFT's/elevated lipase: CT abdomen/pelvis with contrast performed today showed acute necrotic pancreatitis, mild intrahepatic and extrahepatic biliary ductal dilation s/p cholecystectomy. Common bile duct is dilated to 16 mm and gallbladder surgically absent. Labs today show sodium 137, potassium 3.2, BUN 16, creatinine 0.71, GFR > 60, lactic acid 1.3 and magnesium 2.0. WBC is 12, HGB 15, HCT 45, MCV 91 and platelets 389. Total bilirubin 0.6, AST 57, ALT 38, alkaline phosphatase 183 and lipase 7371. Patient states that she is having generalized abdominal pain that started 830 yesterday evening. Last was yesterday and was formed and not urgent. She has had no significant change in pain since presenting to the emergency room. She has generalized tenderness and discomfort with palpation. She denies any prior episodes of pancreatitis. She denies any recent medication changes. LR based on weight 5-10 ml/kg/hr (283-566 ml) with goal HR < 120 and urine output > 28-56 ml/hr correct hypokalemia and monitor closely during fluid resuscitation Continue supportive care with pain management and antiemetics as needed Recommend starting tube feedings through G-tube within 24 hours CBD dilation of 16 mm is higher than expected for post CCX patient, MRCP ordered repeat CT or MRI to be considered if no clinical improvement with above regimen 2. Abnormal imaging digestive/esophageal wall thickening/G-tube: CT performed today showed mild wall thickening of the esophagus, consistent with edema versus esophagitis. Modified barium swallow performed in January of 2024 showed aspiration. Patient has had a G-tube in place for > 9 year for aspiration but has not been seeing a GI provider. Her last modified barium swallows done January 2024 showed persistent aspiration. She takes nothing by mouth other than ice chips. She was unable to say what facility she had the G-tube placed at or how long the current G-tube has been placed. Patient states that yesterday her G-tube ?popped out and she had to put it back in. On exam there was no significant irritation or drainage. Continue famotidine 20 mg BID, if patient starts having upper GI symptoms once tube feeding started, consider changing to Protonix 40 mg daily Patient will likely need her G-tube replaced during this admission given that her current G-tube has been ?in place for a while? and has been frequently popping out requiring the patient to reinsert a balloon herself. Will wait and see if there is any drainage once tube feedings are started before this decision is made Thank you very much for allowing me to share in the care of this very nice patient. This report may have been done utilizing a voice recognition system. Attempts have been made to correct errors. However, there may be uncorrected grammatical, spelling, and recognition errors present. GI Consult Note Consult date/time: 01/28/25 08:17 Reason for consult: Pancreatitis HPI: Keren Pereira is a 59 year old female with PMSH of CCX, breast cancer S/P Rt mastectomy, , HLD and chronic back pain. She presented to the ER today with complaints of abdominal pain that occurred 2 hours prior to presenting to the ER. GI has been consulted for pancreatitis. ENDOSCOPY HISTORY: EGD: [ ] Findings: [ ] Bx results: [ ] COLONOSCOPY: [ ] Findings: [ ] Bx results: [ ] LABS AND STOOL STUDIES: Labs 01/28/2025: Sodium 137, potassium 3.2, BUN 16, creatinine 0.71, GFR >60, calcium 9.3, lactic acid 1.3, magnesium 2.0 WBC 12, Hgb 15, Hct 45, MCV 91, platelets 389 Total bilirubin 0.6, AST 57, ALT 38, Alkaline Phos 183, albumin 3.8, lipase 7371 IMAGING: CT abd/pelvis w/contrast 01/28/2025: IMPRESSION: 1. Acute necrotic pancreatitis. 2. Wall thickening in the esophagus, consistent with edema versus esophagitis. 3. Mild intrahepatic and extrahepatic biliary duct dilatation status post cholecystectomy. Modified Barium Swallow 01/30/2024: IMPRESSION: 1. Aspiration. Review of Systems Constitutional: Constitutional: Reports as per HPI and Reports fatigue ENT: Reports as per HPI Cardiovascular: Cardiovascular: Reports as per HPI, Denies chest pain, Denies pedal edema, Denies leg edema and Denies dyspnea Respiratory: Respiratory: Reports cough, Denies hemoptysis and Denies dyspnea Gastrointestinal: Gastrointestinal: Reports as per HPI Genitourinary: Genitourinary: Denies hematuria Musculoskeletal: Musculoskeletal: Reports as per HPI Integumentary/Breasts: Skin/Breast: Reports as per HPI Psychiatric: Psychiatric: Reports as per HPI Endocrine: Endocrine: Reports no additional endocrine complaints Hematologic/Lymphatic: Hematologic/Lymphatic: Reports no additional hematologic/lymphatic complaints [facility] Social History Social History Smoking status: Current some day smoker Alcohol intake: never Meds Home Medications and Allergies Home Medications ?Medication ?Instructions ?Recorded ?Confirmed ?Type alprazolam 1 mg tablet (Xanax) 1 mg PO TID PRN 07/07/20 History quetiapine 200 mg tablet (Seroquel) 200 mg PO QHS 07/07/20 History hydrocodone 7.5 mg-acetaminophen 1 tablet PO Q4H PRN pain (scale 11/19/20 Rx 325 mg tablet score 7-10) #84 tabs Allergies Allergy/AdvReac Type Severity Reaction Status Date / Time Penicillins Allergy Intermediate rash, Verified 01/28/25 07:50 swelling gabapentin AdvReac Mild Hives Verified 01/28/25 07:50 simvastatin AdvReac Mild Unknown Verified 01/28/25 07:50 Vital Signs Vital Signs - 24 hr 01/28/25 02:28 01/28/25 03:26 01/28/25 05:10 Temperature 97.6 F Pulse Rate 95 93 Respiratory Rate 20 18 18 Blood Pressure 187/118 H 165/105 H 189/120 H Pulse Oximetry 97 99 Oxygen Delivery Room Air 01/28/25 05:25 01/28/25 06:51 01/28/25 07:27 Temperature Pulse Rate 105 H 99 Respiratory Rate 20 20 Blood Pressure 220/121 H 209/132 H 201/125 H Pulse Oximetry 97 Oxygen Delivery 01/28/25 07:57 Temperature Pulse Rate 97 Respiratory Rate 18 Blood Pressure 179/131 H Pulse Oximetry 96 Oxygen Delivery Exam Const: General: cooperative, comfortable, no acute distress, well developed and uncomfortable Orientation/consciousness: oriented to person, oriented to place, oriented to time and patient oriented x3 Other: ill appearing HENMT: Head: normal to inspection, normocephalic and atraumatic Mouth: Yes Normal oral and palatal mucosa present and Yes moist mucous membranes Eyes: General: appearance normal, both eyes and all related structures Conjunctivae: conjunctivae normal Sclera: sclerae normal Pupils: Equal, round and reactive pupils present Neck: Neck: normal visual inspection Chest: Chest palpation & inspection: normal inspection of the chest Resp: Effort & Inspection: normal respiratory effort and able to speak in complete sentences Auscultation: clear to auscultation bilaterally Cardio: Jugular venous distension: no JVD Rate: regular rate Rhythm: regular rhythm Heart sounds: S1 normal heart sound present and S2 normal heart sound present Other: hypertension with BP 200/100's GI: Inspection: abnormal to inspection (peg tube in mid left abdomen) GI Palp: Yes Soft to palpation, Yes Tenderness to palpation present (GI), Yes Guarding due to palpation present (GI) and Yes No hepatosplenomegaly present Auscultation: abnormal bowel sounds Rectal Exam: deferred Skin: General skin exam: normal color and no rashes or lesions noted Neuro: General: oriented to person, oriented to place, oriented to time and patient oriented x3 Cranial nerves: Yes Equal, round and reactive pupils present Speech: normal speech Extrem: General: normal to inspection and no clubbing, cyanosis or edema Psych: Appearance: grossly normal Affect: normal affect Results Labs 01/28/25 03:38 01/28/25 03:38 Labs: Short CBC 01/28/25 Range/Units 03:38 WBC 11.8 H (4.5-10.0) K/mm3 Hgb 15.1 H (12.0-15.0) g/dL Hct 44.9 (37.0-47.0) % Plt Count 389 H (150-375) k/mm3 BMP 01/28/25 03:38 Sodium 137 Potassium 3.2 L Chloride 104 Carbon Dioxide 27 BUN 16 Creatinine 0.71 Glucose 132 H Calcium 9.3 Liver Function 01/28/25 Range/Units 03:38 Total Bilirubin 0.6 (0.2-1.3) mg/dL AST 57 H (14-36) U/L ALT 38 H (6-35) U/L Alkaline Phosphatase 183 H (38-126) U/L Albumin 3.8 (3.5-5.1) g/dL Urine 01/28/25 Range/Units 04:23 Urine Color Yellow (Yellow) Urine Appearance Clear (Clear) Urine pH 7.5 (5.0-9.0) Ur Specific [place] 1.011 (1.001-1.035) Urine Protein 3+ H (Negative) mg/dL Urine Glucose (UA) Negative (Negative) mg/dL
[2025-01-28] MEDS: FAMOTIDINE 20 MG/2 ML VIAL IV PUSH ×2 (09:14→20:28)
[2025-01-28] MEDS: KETAMINE HCL (*CRX) 500 MG/10 ML VIAL 12 MG IV PUSH (09:14)
[2025-01-28] MEDS: LACTATED RINGERS 1,000 ML 100 ML IV CONT ×2 (09:42→17:58)
[2025-01-28] MEDS: HYDROmorphone HCL INJ (*CRX) 2 MG/ML VIAL IV PUSH (10:40)
--- NOTE | 2025-01-28 10:50 | WPCEDHO ---
ED Hand Off Checklist All vitals saved:yes IV Site documented:yes All med administrations documented:yes Triage Note Triage Note Pt arrives via EMS w/ c/o abd 01/28/25 02:28 pain s/p pulling G tube out and then replacing it this afternoon. Pt completed a tube feed after replacing it and pain began 2 hours after. Allergies Penicillins Allergy (Intermediate, Verified 01/28/25 07:50) rash, swelling gabapentin Adverse Reaction (Mild, Verified 01/28/25 07:50) Hives simvastatin Adverse Reaction (Mild, Verified 01/28/25 07:50) Unknown Current Diagnoses Disease of esophagus, unspecified (01/28/25) Other specified diseases of biliary tract (01/28/25) Idiopathic acute pancreatitis with uninfected necrosis (01/28/25) Generalized abdominal pain (01/28/25) Abnormal levels of other serum enzymes (01/28/25) Other specified abnormal findings of blood chemistry (01/28/25) Abnormal findings on diagnostic imaging of other parts of digestive tract (01/28/25) Gastrostomy status (01/28/25) Active Medications including assessments/comments Famotidine (Famotidine 20 Mg/2 Ml Vial) 20 mg IV PUSH Q12HR [facility] Last Admin: 01/28/25 09:14 Dose: 20 mg Documented By: MLI Lactated Ringer's (Lr - Lactated Ringers Iv) 1,000 mls @ 100 mls/hr IV CONT .Q10H [facility] Last Admin: 01/28/25 09:42 Dose: 100 mls/hr Documented By: MLI Infusion/Titration Document 01/28/25 09:42 MLI (Rec: 01/28/25 09:42 MLI [id number]) Intake IV Site Peripheral Access Right Forearm Container Volume 1,000 Waste Amount 0 Dosing Infusion Rate 100 Cumulative Dose Not Applicable Increase/Decrease Started Elapsed Time Elapsed Time ( 0m minutes) Administered/Completed Medications Discontinued Medications Droperidol (Droperidol 5 Mg/2 Ml Vial) 2.5 mg IV PUSH ONCE STA Stop: 01/28/25 09:45 Last Admin: 01/28/25 09:55 Dose: 2.5 mg Documented By: MLI Hydromorphone HCl (Hydromorphone Hcl Inj (*Crx) 1 Mg/Ml Syr) 1 mg IV PUSH ONCE STA Stop: 01/28/25 03:54 Last Admin: 01/28/25 04:15 Dose: 1 mg Documented By: W Hydromorphone HCl (Hydromorphone Hcl Inj (*Crx) 1 Mg/Ml Syr) 1 mg IV PUSH ONCE STA Stop: 01/28/25 06:46 Last Admin: 01/28/25 06:50 Dose: 1 mg Documented By: SRW Hydromorphone HCl (Hydromorphone Hcl Inj (*Crx) 1 Mg/Ml Syr) 1 mg IV PUSH ONCE STA Stop: 01/28/25 07:57 Last Admin: 01/28/25 08:10 Dose: 1 mg Documented By: MLI Hydromorphone HCl (Hydromorphone Hcl Inj (*Crx) 2 Mg/Ml Vial) 2 mg IV PUSH ONCE STA Stop: 01/28/25 10:34 Last Admin: 01/28/25 10:40 Dose: 2 mg Documented By: MLGabby Sodium Chloride (Normal Saline Iv) 1,000 mls @ 999 mls/hr IV CONT .Q1H1M STA Stop: 01/28/25 04:01 Last Infusion: 01/28/25 04:16 Dose: Infused Documented By: Admin: 01/28/25 03:21 Dose: 999 mls/hr Documented By: TOPHER Lactated Ringer's (Lr - Lactated Ringers Iv) 1,000 mls @ 999 mls/hr IV CONT .Q1H1M STA Stop: 01/28/25 08:34 Last Infusion: 01/28/25 09:21 Dose: Infused Documented By: JUAN DANIEL Admin: 01/28/25 07:58 Dose: 999 mls/hr Documented By: MLGabby Ketamine HCl (Ketamine Hcl (*Crx) 500 Mg/10 Ml Vial) 12 mg IV PUSH ONCE ONE Stop: 01/28/25 08:51 Last Admin: 01/28/25 09:14 Dose: 12 mg Documented By: MLI Labetalol HCl (Labetalol Hcl Inj 100 Mg/20 Ml Vial) 10 mg IV PUSH ONCE ONE Stop: 01/28/25 08:02 Last Admin: 01/28/25 08:17 Dose: 10 mg Documented By: MLI Morphine Sulfate (Morphine Sulfate (*Crx) 4 Mg/Ml Inj) 4 mg IV PUSH ONCE STA Stop: 01/28/25 03:02 Last Admin: 01/28/25 03:24 Dose: 4 mg Documented By: SRW Ondansetron HCl (Ondansetron Inj 4 Mg/2 Ml Vial) 4 mg IV PUSH ONCE STA Stop: 01/28/25 03:02 Last Admin: 01/28/25 03:23 Dose: 4 mg Documented By: SRW Pantoprazole Sodium (Pantoprazole Sodium Iv 40 Mg Vial) 40 mg IV PUSH ONCE STA Stop: 01/28/25 07:58 Last Admin: 01/28/25 08:15 Dose: 40 mg Documented By: MLI Interventions/Assessments IV / Saline Lock, Insert Start: 01/28/25 02:22 Freq: Status: Active Protocol: Document 01/28/25 03:21 SRW (Rec: 01/28/25 03:21 SRW [id number]) IV Assessment Peripheral Access Right Forearm IV Catheter Access Initiated Before Arrival Catheter Gauge 20 IV Insertion 1 Attempts IV Site Assessment WNL IV Care and WNL Maintenance PA: Gastrointestinal Assessment Start: 01/28/25 02:22 Freq: Status: Active Protocol: Document 01/28/25 05:16 SRW (Rec: 01/28/25 05:17 SRW [id number]) GI Assessment Gastrointestinal Cramping Symptoms Last Vital Signs Temperature 97.6 F 01/28/25 02:28 Pulse Rate 92 01/28/25 10:41 Respiratory Rate 20 01/28/25 10:41 Pulse Oximetry 98 01/28/25 10:41 Blood Pressure 188/122 H 01/28/25 10:41 Blood Pressure Mean 144 01/28/25 10:41 Oxygen Delivery Room Air 01/28/25 02:28 Weight 56.6 kg 01/28/25 02:28 Last Result - Abnormals Only WBC 11.8 K/mm3 (4.5-10.0) H 01/28/25 03:38 Hgb 15.1 g/dL (12.0-15.0) H 01/28/25 03:38 RDW 15.8 % (11.5-14.5) H 01/28/25 03:38 Plt Count 389 k/mm3 (150-375) H 01/28/25 03:38 Neut % (Auto) 89.7 % (45.5-73.1) H 01/28/25 03:38 Lymph % (Auto) 5.9 % (18.3-44.2) L 01/28/25 03:38 Lymph # (Auto) 0.70 K/mm3 (0.9-3.2) L 01/28/25 03:38 Abs Immat Gran (auto) 0.06 K/mm3 (0.00-0.031) H 01/28/25 03:38 Absolute Neuts (auto) 10.6 K/mm3 (1.3-6.7) H 01/28/25 03:38 Potassium 3.2 mmol/L (3.4-5.0) L 01/28/25 03:38 Glucose 132 mg/dL (65-110) H 01/28/25 03:38 AST 57 U/L (14-36) H 01/28/25 03:38 ALT 38 U/L (6-35) H 01/28/25 03:38 Alkaline Phosphatase 183 U/L (38-126) H 01/28/25 03:38 Lipase 7371 U/L (23-300) H 01/28/25 03:38 Urine Protein 3+ mg/dL (Negative) H 01/28/25 04:23 Most Recent Suicide Severity Rating Suicide Severity Rating NO RISK INDICATED 01/28/25 02:28
--- NOTE | 2025-01-28 11:56 | ADMGEN ---
This patient, Keren Pereira, was admitted to IMU Room 205-01 at 1122. Patient/family oriented to hospital policies and general routines including ID bracelet, bed and alarms, visiting hours, pain management, procedures, bathroom and other care routines, personal items, smoking policy, room service/diet, and visiting hours. Information on how to activate the Rapid Response Team has been discussed. Patient/Family are encouraged to report perceived risks to care and to ask questions if they do not understand what they are told or what they should do.
--- NOTE | 2025-01-28 13:03 | PM.IMHP2 ---
H&P: HPI History of Present Illness Date/Time: 01/28/25 13:03 Chief Complaint: Abdominal pain Narrative: This is a 59-year-old female who presented with abdominal pain severe started last night. No nausea vomiting. No aggravating or alleviating factor. In the ED she was hypertensive otherwise afebrile. Laboratory studies showed WBC of 11.8 hemoglobin 15.1 platelet count 389. Sodium 137 potassium 3.2 chloride 104 bicarbonate 27 BUN 16 creatinine 0.7 blood glucose of 132 lactate 1.3 LFT showed total bilirubin of 0.6 AST 57 ALT 38 alkaline phosphatase 183. Lipase came back elevated at 7371. Urinalysis was negative for infection. CT abdomen pelvis showed acute necrotizing pancreatitis. Patient admitted in the setting for further treatment. Review of Systems Review of Systems: - CONSTITUTIONAL: Denies weight loss, fever and chills. - HEENT: Denies changes in vision and hearing - RESPIRATORY: Denies SOB and cough. - CV: Denies palpitations and CP. - GI: Reports abdominal pain, denies nausea, vomiting and diarrhea. - : Denies dysuria and urinary frequency. - MSK: Denies myalgia and joint pain. - SKIN: Denies rash and pruritus. - NEUROLOGICAL: Denies headache and syncope. - PSYCHIATRIC: Denies recent changes in mood. Denies anxiety and depression. [facility] Family History Family History (Updated 01/28/25 @ 12:18 by Natalie Cardoza RN) Other Cancer Mother Cancer Other Heart disease Social History Social History Smoking status: Former smoker Second hand tobacco smoke exposure: Yes Alcohol intake: never Substance use: never Substance use type: does not use Lack of Transportation: No Lack of Food: Never True Current Housing: I Have Housing Concerned About Future Housing: No Difficulty Paying Gas/Electric Bills: No Difficulty Paying for Meds: No Currently Unemployed: No Education: High School Diploma/GED Difficulty w/ Childcare or Family Care: No Spiritual care concerns: No Meds Home Medications and Allergies Home Medications ?Medication ?Instructions ?Recorded ?Confirmed ?Type alprazolam 1 mg tablet (Xanax) 1 mg feeding tube TID PRN anxiety 07/07/20 01/28/25 History acetaminophen 325 mg capsule 325 mg feeding tube Q4H PRN pain 01/28/25 01/28/25 History albuterol sulfate 90 mcg/actuation 2 inh inhalation Q4H 01/28/25 01/28/25 History aerosol inhaler (Ventolin HFA) baclofen 10 mg tablet 10 mg feeding tube BID 01/28/25 01/28/25 History diphenhydramine HCl 25 mg capsule 25 mg feeding tube BID PRN itching 01/28/25 01/28/25 History (Aler-Cap) doxepin 10 mg capsule 10 mg feeding tube HS 01/28/25 01/28/25 History fluticasone furoate 100 1 inh inhalation Q24H 01/28/25 01/28/25 History mcg-vilanterol 25 mcg/dose inhalation powder (Breo Ellipta) hydrocodone 10 mg-acetaminophen 1 tablet feeding tube Q8H 01/28/25 01/28/25 History 325 mg tablet hydrocortisone 0.5 % topical cream 1 applic topical QID PRN wound care 01/28/25 01/28/25 History ibuprofen 600 mg tablet (IBU) 600 mg feeding tube TID PRN pain 01/28/25 01/28/25 History mirtazapine 15 mg disintegrating 15 mg feeding tube HS 01/28/25 01/28/25 History tablet quetiapine 25 mg tablet 25 mg feeding tube DAILY 01/28/25 01/28/25 History quetiapine 25 mg tablet 75 mg feeding tube HS 01/28/25 01/28/25 History quetiapine 300 mg tablet 300 mg feeding tube HS 01/28/25 01/28/25 History quetiapine 50 mg tablet mg 01/28/25 History Allergies Allergy/AdvReac Type Severity Reaction Status Date / Time Penicillins Allergy Intermediate rash, Verified 01/28/25 11:34 swelling gabapentin AdvReac Mild Hives Verified 01/28/25 11:34 simvastatin AdvReac Mild Unknown Verified 01/28/25 11:34 Vital Signs Vital Signs - 24 hr 01/28/25 02:28 01/28/25 03:26 01/28/25 05:10 Temperature 97.6 F Pulse Rate 95 93 Respiratory Rate 20 18 18 Blood Pressure 187/118 H 165/105 H 189/120 H Pulse Oximetry 97 99 Oxygen Delivery Room Air 01/28/25 05:25 01/28/25 06:51 01/28/25 07:27 Temperature Pulse Rate 105 H 99 Respiratory Rate 20 20 Blood Pressure 220/121 H 209/132 H 201/125 H Pulse Oximetry 97 Oxygen Delivery 01/28/25 07:57 01/28/25 09:13 01/28/25 09:42 Temperature Pulse Rate 97 82 88 Respiratory Rate 18 20 20 Blood Pressure 179/131 H 204/121 H 199/129 H Pulse Oximetry 96 98 98 Oxygen Delivery 01/28/25 09:56 01/28/25 10:00 01/28/25 10:41 Temperature Pulse Rate 88 88 92 Respiratory Rate 20 20 20 Blood Pressure 194/123 H 184/124 H 188/122 H Pulse Oximetry 96 98 98 Oxygen Delivery 01/28/25 11:02 Temperature Pulse Rate 90 Respiratory Rate 18 Blood Pressure 164/114 H Pulse Oximetry 95 Oxygen Delivery Exam Narrative: GENERAL: Well-appearing, well-nourished, delete in moderate pain distress. HEAD: Normocephalic, atraumatic. EYES: PERRLA and EOMI. ENT: Nares clear, no rhinorrhea or epistaxis. Mucous membranes dry. NECK: Supple. CHEST: Clear to auscultation. No respiratory distress. HEART: Regular rate and rhythm. No murmur heard. Normal peripheral pulses. ABDOMEN: Soft, diffusely tender throughout the abdomen, nondistended, normal active bowel sounds. G-tube in place EXTREMITIES: Normal range of motion. No edema. SKIN: Warm, dry, no rash. NEURO: No focal deficits. Alert and oriented x3. PSYCH: Normal mood and affect. Results Labs Labs: Short CBC 01/28/25 Range/Units 03:38 WBC 11.8 H (4.5-10.0) K/mm3 Hgb 15.1 H (12.0-15.0) g/dL Hct 44.9 (37.0-47.0) % Plt Count 389 H (150-375) k/mm3 BMP 01/28/25 03:38 Sodium 137 Potassium 3.2 L Chloride 104 Carbon Dioxide 27 BUN 16 Creatinine 0.71 Glucose 132 H Calcium 9.3 Liver Function 01/28/25 Range/Units 03:38 Total Bilirubin 0.6 (0.2-1.3) mg/dL AST 57 H (14-36) U/L ALT 38 H (6-35) U/L Alkaline Phosphatase 183 H (38-126) U/L Albumin 3.8 (3.5-5.1) g/dL Urine 01/28/25 Range/Units 04:23 Urine Color Yellow (Yellow) Urine Appearance Clear (Clear) Urine pH 7.5 (5.0-9.0) Ur Specific [place] 1.011 (1.001-1.035) Urine Protein 3+ H (Negative) mg/dL Urine Glucose (UA) Negative (Negative) mg/dL Assessment and Plan Assessment and plan (1) Acute pancreatitis: Qualifiers: Acute pancreatitis complication: uninfected necrosis Pancreatitis type: idiopathic Qualified Code(s): K85.01 - Idiopathic acute pancreatitis with uninfected necrosis Code(s): K85.90 - Acute pancreatitis without necrosis or infection, unspecified Status: Acute (2) Elevated LFTs: Code(s): R79.89 - Other specified abnormal findings of blood chemistry Status: Acute (3) Dilated cbd, acquired: Code(s): K83.8 - Other specified diseases of biliary tract Status: Acute (4) Abdominal pain: Qualifiers: Abdominal location: generalized Qualified Code(s): R10.84 - Generalized abdominal pain Code(s): R10.9 - Unspecified abdominal pain Status: Acute (5) Esophageal abnormality: Code(s): K22.9 - Disease of esophagus, unspecified Status: Acute (6) Gastrojejunal tube present: Code(s): Z93.1 - Gastrostomy status Status: Acute Plan This is a 59-year-old female who presented with abdominal pain severe started last night. No nausea vomiting. No aggravating or alleviating factor. In the ED she was hypertensive otherwise afebrile. Laboratory studies showed WBC of 11.8 hemoglobin 15.1 platelet count 389. Sodium 137 potassium 3.2 chloride 104 bicarbonate 27 BUN 16 creatinine 0.7 blood glucose of 132 lactate 1.3 LFT showed total bilirubin of 0.6 AST 57 ALT 38 alkaline phosphatase 183. Lipase came back elevated at 7371. Urinalysis was negative for infection. CT abdomen pelvis showed acute necrotizing pancreatitis. Patient admitted in the setting for further treatment. Acute necrotizing pancreatitis IV fluid resuscitation as ordered. IV Dilaudid p.r.n. IV antiemetics. MRI/MRCP ordered NPO Mild intrahepatic and extrahepatic biliary duct dilatation status post cholecystectomy MRI MRCP ordered Status post cholecystectomy Elevated LFTs Status post G-tube placement formal nutrition/aspiration Esophagitis had ppi DVT prophylaxis Lovenox Code status full code Hospitalist MIPS Advance Care Plan I have confirmed that the patient's Advanced Care Plan is present, code status is documented, or surrogate decision maker is listed in patient medical record.: Yes Medication Reconciliation I have utilized all available resources to obtain, update and review the patients current medications (includes all prescriptions, OTC, herbals, cannabis, and nutritional supplements).: Yes
--- NOTE | 2025-01-28 16:17 | PC.NURSE ---
Dr Alba notified of elevated bp. stated he would put in an order.
[2025-01-28 16:50] LABS: Hematocrit 47.1 % (37.0-47.0); Hemoglobin 16.0 g/dL (12.0-15.0); Mean Corpuscular HGB Conc 34.0 g/dl (32-36); Mean Corpuscular Hemoglobin 30.6 pg (26-34); Mean Corpuscular Volume 90.1 fl (80-100); Platelet Count Result 445 k/mm3 (150-375); Red Blood Count 5.23 M/mm3 (4.2-5.4); White Blood Count 23.2 K/mm3 (4.5-10.0)
[2025-01-28 17:19] LABS: Alanine Aminotransferase 30 U/L (6-35); Albumin Level 3.6 g/dL (3.5-5.1); Alkaline Phosphatase 182 U/L (38-126); Anion Gap 7 mmol/L (4-12); Aspartate Amino Transferase 43 U/L (14-36); Bilirubin,Total 0.8 mg/dL (0.2-1.3); Blood Urea Nitrogen 13 mg/dL (7-17); CRP 2.5 mg/dL (<1.0); Calcium 9.3 mg/dL (8.4-10.2); Carbon Dioxide 24 mmol/L (22-30); Chloride 106 mmol/L (98-107); Estimated CRCL calculation 63 ml/min; Estimated Glomerular Filt Rate > 60; Glucose 98 mg/dL (65-110); Potassium 3.0 mmol/L (3.4-5.0); Sodium 137 mmol/L (137-145); Total Protein 7.9 g/dL (6.3-8.2)
--- NOTE | 2025-01-28 21:10 | PC.NURSE ---
Pts g tube was ripped out on 01/27 at her nursing facility. Pt stated she put it back in place. Provider notified of this occurrence and okayed for g tube to not be used at this time and all tube medication to not be given.
--- NOTE | 2025-01-28 22:31 | PCRCNOTE ---
Patient states she on;y takes her mdi treatments q4 while awake at home. Pt refused her 2000, 0000, and 0400 treatments. Next scheduled tx is 0800.
[2025-01-29] VITALS (16 sets, daily range): BP systolic 132–163; BP diastolic 85–110; PULSE 92–113; RESP 16–20; TEMP 36.6–37.1; O2SAT 95–99; BMI 23.6
[2025-01-29] MEDS: HYDROmorphone HCL INJ (*CRX) 1 MG/ML SYR IV PUSH ×7 (03:03→21:29)
[2025-01-29] MEDS: LACTATED RINGERS 1,000 ML 125 ML IV CONT (03:03)
--- NOTE | 2025-01-29 03:40 | PC.NURSE ---
Pt given 1mg IVP of Dilaudid at 0303, pt pain reassessed at 0333, pt stated her pain is still at a 10 and she does not believe she was given the pain medication. Dilaudid was scanned and drawn up bedside by this RN.
[2025-01-29 04:03] LABS: Hematocrit 45.1 % (37.0-47.0); Hemoglobin 15.4 g/dL (12.0-15.0); Mean Corpuscular HGB Conc 34.1 g/dl (32-36); Mean Corpuscular Hemoglobin 30.8 pg (26-34); Mean Corpuscular Volume 90.2 fl (80-100); Platelet Count Result 377 k/mm3 (150-375); Red Blood Count 5.00 M/mm3 (4.2-5.4); White Blood Count 22.6 K/mm3 (4.5-10.0)
[2025-01-29 04:28] LABS: Alanine Aminotransferase 26 U/L (6-35); Albumin Level 3.3 g/dL (3.5-5.1); Alkaline Phosphatase 163 U/L (38-126); Anion Gap 6 mmol/L (4-12); Aspartate Amino Transferase 44 U/L (14-36); Bilirubin,Total 1.0 mg/dL (0.2-1.3); Blood Urea Nitrogen 12 mg/dL (7-17); CRP 6.8 mg/dL (<1.0); Calcium 8.7 mg/dL (8.4-10.2); Carbon Dioxide 25 mmol/L (22-30); Chloride 104 mmol/L (98-107); Estimated CRCL calculation 66 ml/min; Estimated Glomerular Filt Rate > 60; Glucose 79 mg/dL (65-110); Potassium 3.0 mmol/L (3.4-5.0); Sodium 135 mmol/L (137-145); Total Protein 7.6 g/dL (6.3-8.2)
--- NOTE | 2025-01-29 06:20 | PC.NURSE ---
Pt given 1mg of IVP Dilaudid, second RN Jordyn Gonzalez witnessed medication being drawn up and administered to pt.
--- NOTE | 2025-01-29 08:23 | PCRCNOTE ---
pt leaving to go to MRI
[2025-01-29] MEDS: FAMOTIDINE 20 MG/2 ML VIAL IV PUSH ×2 (09:20→21:06)
[2025-01-29 09:44] LABS: Lipase 4902 U/L (23-300)
[2025-01-29] MEDS: POTASSIUM CHLORIDE INJ 40 MEQ in SODIUM CHLORIDE 0.9% IV 500 ML 130 MEQ IVPB (11:39)
--- NOTE | 2025-01-29 11:43 | P.PNIM_ITS ---
Assessment and Plan Assessment and Plan (1) Acute pancreatitis: Qualifiers: Acute pancreatitis complication: uninfected necrosis Pancreatitis type: idiopathic Qualified Code(s): K85.01 - Idiopathic acute pancreatitis with uninfected necrosis Code(s): K85.90 - Acute pancreatitis without necrosis or infection, unspecified Status: Acute (2) Elevated LFTs: Code(s): R79.89 - Other specified abnormal findings of blood chemistry Status: Acute (3) Dilated cbd, acquired: Code(s): K83.8 - Other specified diseases of biliary tract Status: Acute (4) Abdominal pain: Qualifiers: Abdominal location: generalized Qualified Code(s): R10.84 - Generalized abdominal pain Code(s): R10.9 - Unspecified abdominal pain Status: Acute (5) Esophageal abnormality: Code(s): K22.9 - Disease of esophagus, unspecified Status: Acute (6) Gastrojejunal tube present: Code(s): Z93.1 - Gastrostomy status Status: Acute Plan This is a 59-year-old female who presented with abdominal pain severe started last night. No nausea vomiting. No aggravating or alleviating factor. In the ED she was hypertensive otherwise afebrile. Laboratory studies showed WBC of 11.8 hemoglobin 15.1 platelet count 389. Sodium 137 potassium 3.2 chloride 104 bicarbonate 27 BUN 16 creatinine 0.7 blood glucose of 132 lactate 1.3 LFT showed total bilirubin of 0.6 AST 57 ALT 38 alkaline phosphatase 183. Lipase came back elevated at 7371. Urinalysis was negative for infection. CT abdomen pelvis showed acute necrotizing pancreatitis. Patient admitted in the setting for further treatment. Acute necrotizing pancreatitis IV fluid resuscitation as ordered. IV Dilaudid p.r.n. IV antiemetics. MRI/MRCP with no evident obstructing stone or mass. Acute interstitial pancreatitis with 1 cm nonenhancing region of likely parenchymal necrosis at the tail of pancreas. Wall thickening along the patulous fluid-filled esophagus with suggest esophagitis. Will start trickle tube feed today per G-tube. Speech to see for aspiration History of aspiration with failed MBS. Has been pleasure feeding. Will have speech see her Mild intrahepatic and extrahepatic biliary duct dilatation status post ch olecystectomy MRI MRCP ordered Status post cholecystectomy Elevated LFTs Status post G-tube placement formal nutrition/aspiration. G-tube was exchanged by GI 01/29/2025 at bedside Esophagitis had ppi DVT prophylaxis Lovenox Code status full code Subjective Date/time seen: 01/29/25 11:43 Interval history: Abdominal pain is little better today. Denies any nausea vomiting. Discussed with GI. Review of Systems Review of Systems: All systems reviewed & are unremarkable except as noted in HPI and below Exam Narrative: GENERAL: Well-appearing, well-nourished, not in acute distress HEAD: Normocephalic, atraumatic. EYES: PERRLA and EOMI. ENT: Nares clear, no rhinorrhea or epistaxis. Mucous membranes dry. NECK: Supple. CHEST: Clear to auscultation. No respiratory distress. HEART: Regular rate and rhythm. No murmur heard. Normal peripheral pulses. ABDOMEN: Soft, diffusely tender in epigastric area, nondistended, normal active bowel sounds. G-tube in place EXTREMITIES: Normal range of motion. No edema. SKIN: Warm, dry, no rash. NEURO: No focal deficits. Alert and oriented x3. PSYCH: Normal mood and affect. Objective Data Vital Signs Vital Signs: Vital Signs - 24 hr 01/28/25 11:45 01/28/25 12:00 01/28/25 12:00 Temperature 98.2 F Pulse Rate 92 88 Respiratory Rate 18 Blood Pressure 163/98 H Pulse Oximetry Oxygen Delivery Room Air 01/28/25 14:00 01/28/25 16:00 01/28/25 16:00 Temperature Pulse Rate 96 103 H Respiratory Rate Blood Pressure Pulse Oximetry Oxygen Delivery Room Air 01/28/25 16:00 01/28/25 16:54 01/28/25 18:00 Temperature 98.5 F Pulse Rate 104 H 100 90 Respiratory Rate 20 Blood Pressure 189/114 H Pulse Oximetry 97 Oxygen Delivery 01/28/25 20:00 01/28/25 20:00 01/28/25 20:00 Temperature 98.4 F Pulse Rate 96 108 H Respiratory Rate 24 H Blood Pressure 166/109 H Pulse Oximetry 97 Oxygen Delivery Room Air 01/28/25 22:00 01/28/25 23:47 01/29/25 00:00 Temperature 98.5 F Pulse Rate 101 H 106 H Respiratory Rate 20 Blood Pressure 143/118 H Pulse Oximetry 98 Oxygen Delivery Room Air 01/29/25 00:00 01/29/25 02:00 01/29/25 04:00 Temperature 98.7 F Pulse Rate 99 103 H 108 H Respiratory Rate 20 Blood Pressure 144/99 H Pulse Oximetry 95 Oxygen Delivery 01/29/25 04:00 01/29/25 04:00 01/29/25 06:00 Temperature Pulse Rate 100 98 Respiratory Rate Blood Pressure Pulse Oximetry Oxygen Delivery Room Air 01/29/25 08:00 Temperature 98.7 F Pulse Rate 99 Respiratory Rate 16 Blood Pressure 150/102 H Pulse Oximetry 98 Oxygen Delivery Intake/Output Intake/Output: Intake & Output 01/26/25 01/27/25 01/28/25 01/29/25 23:59 23:59 23:59 23:59 Intake Total 2888.4 1617.1 Output Total 500 Balance 2388.4 1617.1 Meds/Results Medications: Active Medications Generic Name Dose Route Start Last Admin Trade Name Freq PRN Reason Stop Dose Admin Acetaminophen 325 mg 01/28/25 13:08 Acetaminophen 325 Mg Tablet FEED TUBE Q4H PRN Pain 1-3 Albuterol 2 puff 01/28/25 13:10 01/29/25 08:21 Albuterol Sulfate (*Sp) Aerosol 1 Puff INHALATION Not Given Q4HRT DARRYN Alprazolam 1 mg 01/28/25 13:08 Alprazolam (*Crx) 0.5 Mg Tablet FEED TUBE TID PRN Anxiety Baclofen 10 mg 01/28/25 21:00 01/28/25 20:44 Baclofen 10 Mg Tablet FEED TUBE Not Given Q12HR DARRYN Diphenhydramine HCl 25 mg 01/28/25 13:08 Diphenhydramine Hcl Cap 25 Mg Capsule FEED TUBE BID PRN Itching Doxepin HCl 10 mg 01/28/25 21:00 01/28/25 20:44 Doxepin Hcl 10 Mg Capsule FEED TUBE Not Given HS DARRYN Famotidine 20 mg 01/28/25 09:00 01/29/25 09:20 Famotidine 20 Mg/2 Ml Vial IV PUSH 20 mg Q12HR DARRYN Administration Hydrocortisone 1 applic 01/28/25 13:17 Hydrocortisone 1% 30 Gm Cream TOPICAL QID PRN wound care Hydromorphone HCl 1 mg 01/28/25 13:02 01/29/25 09:18 Hydromorphone Hcl Inj (*Crx) 1 Mg/Ml Syr IV PUSH 1 mg Q3H PRN Administration Pain Rated 7-10 Lactated Ringer's 1,000 mls @ 100 mls/hr 01/28/25 07:35 01/29/25 08:00 Lr - Lactated Ringers Iv IV CONT 100 mls/hr .Q10H DARRYN Infusion Potassium Chloride 40 meq/ 520 mls @ 130 mls/hr 01/29/25 09:15 01/29/25 11:39 Sodium Chloride IVPB 01/29/25 13:14 130 mls/hr ONCE ONE Administration Labetalol HCl 10 mg 01/28/25 16:16 01/28/25 16:54 Labetalol Hcl Inj 100 Mg/20 Ml Vial IV PUSH 10 mg Q6H PRN Administration Hypertension Mirtazapine 15 mg 01/28/25 21:00 01/28/25 20:44 Mirtazapine Soltab 15 Mg Tab.Disper FEED TUBE Not Given HS DARRYN Ondansetron HCl 4 mg 01/28/25 13:09 Ondansetron Inj 4 Mg/2 Ml Vial IV PUSH Q6H PRN Nausea And Vomiting Quetiapine Fumarate 25 mg 01/29/25 09:00 01/29/25 11:41 Quetiapine Fumarate 25 Mg Tablet FEED TUBE Not Given DAILY DARRYN Quetiapine Fumarate 75 mg 01/28/25 21:00 01/28/25 20:44 Quetiapine Fumarate 25 Mg Tablet FEED TUBE Not Given [facility] Quetiapine Fumarate 300 mg 01/28/25 21:00 01/28/25 20:44 Quetiapine Fumarate 100 Mg Tablet FEED TUBE Not Given [facility] Fluticasone/Salmeterol 2 puff 01/28/25 20:00 01/29/25 08:22 Fluticasone/Salmeterol 115-21 Mcg Inhaler 1 Puff INHALATION Not Given Q12HRT [facility] Radiology Results: ITS Impressions Abdomen/Pelvis CT 01/28/25 07:07 IMPRESSION: 1. Acute necrotic pancreatitis. 2. Wall thickening in the esophagus, consistent with edema versus esophagitis. 3. Mild intrahepatic and extrahepatic biliary duct dilatation status post cholecystectomy. MRCP 01/29/25 09:42 IMPRESSION: 1. Status post cholecystectomy with mild intrahepatic ductal or ductal dilation and moderately dilated common hepatic and bile ducts without evident obstructing stone or mass. 2. Acute interstitial pancreatitis with 1 cm nonenhancing region of likely parenchymal necrosis at the tail of the pancreas. 3. Extensive peripancreatic and retroperitoneal edema and small amount of likely reactive ascites in the pelvis. No abscess. 4. Wall thickening along the patulous fluid-filled esophagus which suggests esophagitis. 5.. Additional postoperative change of prior right mastectomy, percutaneous gastrostomy tube placement and surgical clips at the thoracic hiatus. Labs Labs: Laboratory Results - last 24 hr 01/28/25 01/28/25 01/29/25 16:47 23:33 03:45 WBC 23.2 H 22.6 H RBC 5.23 5.00 Hgb 16.0 H 15.4 H Hct 47.1 H 45.1 MCV 90.1 90.2 MCH 30.6 30.8 MCHC 34.0 34.1 RDW 15.9 H 15.9 H Plt Count 445 H 377 H MPV 9.1 9.6 Sodium 137 135 L Potassium 3.0 L 3.0 L Chloride 106 104 Carbon Dioxide 24 25 Anion Gap 7 6 BUN 13 12 Creatinine 0.64 L 0.60 L Estim Creat Clear Calc 63 66 Estimated GFR > 60 > 60 Glucose 98 79 POC Capillary Glucose 97 Calcium 9.3 8.7 Total Bilirubin 0.8 1.0 AST 43 H 44 H ALT 30 26 Alkaline Phosphatase 182 H 163 H C-Reactive Protein 2.5 H 6.8 H Total Protein 7.9 7.6 Albumin 3.6 3.3 L Lipase 4902 H
[2025-01-29] MEDS: BACLOFEN 10 MG TABLET FEED TUBE ×2 (11:56→21:05)
[2025-01-29] MEDS: LACTATED RINGERS 1,000 ML 100 ML IV CONT ×2 (11:56→22:12)
[2025-01-29] MEDS: ALPRAZolam (*CRX) 0.5 MG TABLET 1 MG FEED TUBE ×2 (11:57→21:06)
--- NOTE | 2025-01-29 12:31 | PCSTNOTE ---
Patient with lengthy hx of penetration/aspiration risk and g-tube. Recommend MBS be considered. Last MBS 01/30/24
[2025-01-29] MEDS: ALBUTEROL SULFATE (*SP) AEROSOL 1 PUFF 2 PUFF INHALATION ×2 (12:53→20:09)
--- NOTE | 2025-01-29 15:35 | P.PNGI_ITS ---
Progress Note: A&P Assessment and Plan (1) Acute pancreatitis: Qualifiers: Acute pancreatitis complication: uninfected necrosis Pancreatitis type: idiopathic Qualified Code(s): K85.01 - Idiopathic acute pancreatitis with uninfected necrosis Code(s): K85.90 - Acute pancreatitis without necrosis or infection, unspecified Status: Acute Assessment and Plan: - The patient presents with acute interstitial pancreatitis of unclear etiology. The MRI and MRCP performed today revealed a small circumscribed area of necrosis in the tail of the pancreas, significant retroperitoneal and peripancreatic edema, and mild ascites. The gallbladder is absent, and there is no evidence of residual stones; the important biliary tree dilatation is likely attributable to the surrounding pancreatic edema. Early enteral feeding with a low-rate formula has been initiated to prevent intestinal atrophy and minimize the risk of secondary bacterial contamination of the sterile pancreatic necrosis. - Her high analgesic requirements are likely related to a low pain threshold, compounded by chronic narcotic dependency for pre-existing back pain. - The indication for the current G-tube placement is unclear, but imaging suggests a markedly dilated esophagus, raising suspicion for achalasia and not reflux. Will try to obtain records from previous hospitalizations to clarify the gastrostomy tube indication. We will continue to monitor her clinical status and inflammatory markers daily. Subjective Date/time seen: 01/29/25 15:35 Interval history: Patient continues to have diffuse abdominal pain, requiring Dilaudid every 3 hours. There is no nausea vomiting. The gastrostomy tube was changed earlier today, currently receiving enteral nutrition at a low rate, i.e., 25 mL/hour. Exam Narrative: Gastrostomy site with moderate erythema and minimal secretion. Bowel sounds present, diffusely tender on deep palpation. Objective Data Vital Signs Vital Signs: Vital Signs - 24 hr 01/28/25 16:00 01/28/25 16:00 01/28/25 16:00 Temperature 98.5 F Pulse Rate 103 H 104 H Respiratory Rate 20 Blood Pressure 189/114 H Pulse Oximetry 97 Oxygen Delivery Room Air 01/28/25 16:54 01/28/25 18:00 01/28/25 20:00 Temperature 98.4 F Pulse Rate 100 90 96 Respiratory Rate 24 H Blood Pressure 166/109 H Pulse Oximetry 97 Oxygen Delivery 01/28/25 20:00 01/28/25 20:00 01/28/25 22:00 Temperature Pulse Rate 108 H 101 H Respiratory Rate Blood Pressure Pulse Oximetry Oxygen Delivery Room Air 01/28/25 23:47 01/29/25 00:00 01/29/25 00:00 Temperature 98.5 F Pulse Rate 106 H 99 Respiratory Rate 20 Blood Pressure 143/118 H Pulse Oximetry 98 Oxygen Delivery Room Air 01/29/25 02:00 01/29/25 04:00 01/29/25 04:00 Temperature 98.7 F Pulse Rate 103 H 108 H Respiratory Rate 20 Blood Pressure 144/99 H Pulse Oximetry 95 Oxygen Delivery Room Air 01/29/25 04:00 01/29/25 06:00 01/29/25 08:00 Temperature 98.7 F Pulse Rate 100 98 99 Respiratory Rate 16 Blood Pressure 150/102 H Pulse Oximetry 98 Oxygen Delivery 01/29/25 08:00 01/29/25 08:00 01/29/25 10:00 Temperature Pulse Rate 101 H 100 Respiratory Rate Blood Pressure Pulse Oximetry Oxygen Delivery Room Air 01/29/25 11:55 01/29/25 12:00 01/29/25 12:00 Temperature 98.2 F Pulse Rate 95 98 Respiratory Rate 20 Blood Pressure 153/106 H Pulse Oximetry 98 Oxygen Delivery Room Air 01/29/25 12:58 Temperature Pulse Rate 104 H Respiratory Rate 18 Blood Pressure Pulse Oximetry Oxygen Delivery Intake/Output Intake/Output: Intake & Output 01/26/25 01/27/25 01/28/25 01/29/25 23:59 23:59 23:59 23:59 Intake Total 2888.4 1997. Output Total 500 Balance 2388.4 1997. Meds/Results Medications: Active Medications Generic Name Dose Route Start Last Admin Trade Name Freq PRN Reason Stop Dose Admin Acetaminophen 325 mg 01/28/25 13:08 Acetaminophen 325 Mg Tablet FEED TUBE Q4H PRN Pain 1-3 Albuterol 2 puff 01/28/25 13:10 01/29/25 12:53 Albuterol Sulfate (*Sp) Aerosol 1 Puff INHALATION 2 puff Q4HRT DARRYN Administration Alprazolam 1 mg 01/28/25 13:08 01/29/25 11:57 Alprazolam (*Crx) 0.5 Mg Tablet FEED TUBE 1 mg TID PRN Administration Anxiety Baclofen 10 mg 01/28/25 21:00 01/29/25 11:56 Baclofen 10 Mg Tablet FEED TUBE 10 mg Q12HR DARRYN Administration Diphenhydramine HCl 25 mg 01/28/25 13:08 Diphenhydramine Hcl Cap 25 Mg Capsule FEED TUBE BID PRN Itching Doxepin HCl 10 mg 01/28/25 21:00 01/28/25 20:44 Doxepin Hcl 10 Mg Capsule FEED TUBE Not Given HS DARRYN Famotidine 20 mg 01/28/25 09:00 01/29/25 09:20 Famotidine 20 Mg/2 Ml Vial IV PUSH 20 mg Q12HR DARRYN Administration Hydrocortisone 1 applic 01/28/25 13:17 Hydrocortisone 1% 30 Gm Cream TOPICAL QID PRN wound care Hydromorphone HCl 1 mg 01/28/25 13:02 01/29/25 11:57 Hydromorphone Hcl Inj (*Crx) 1 Mg/Ml Syr IV PUSH 1 mg Q3H PRN Administration Pain Rated 7-10 Lactated Ringer's 1,000 mls @ 100 mls/hr 01/28/25 07:35 01/29/25 11:56 Lr - Lactated Ringers Iv IV CONT 100 mls/hr .Q10H DARRYN Administration Labetalol HCl 10 mg 01/28/25 16:16 01/28/25 16:54 Labetalol Hcl Inj 100 Mg/20 Ml Vial IV PUSH 10 mg Q6H PRN Administration Hypertension Mirtazapine 15 mg 01/28/25 21:00 01/28/25 20:44 Mirtazapine Soltab 15 Mg Tab.Disper FEED TUBE Not Given HS DARRYN Ondansetron HCl 4 mg 01/28/25 13:09 Ondansetron Inj 4 Mg/2 Ml Vial IV PUSH Q6H PRN Nausea And Vomiting Quetiapine Fumarate 25 mg 01/29/25 09:00 01/29/25 11:41 Quetiapine Fumarate 25 Mg Tablet FEED TUBE Not Given DAILY DARRYN Quetiapine Fumarate 75 mg 01/28/25 21:00 01/28/25 20:44 Quetiapine Fumarate 25 Mg Tablet FEED TUBE Not Given HS DARRYN Quetiapine Fumarate 300 mg 01/28/25 21:00 01/28/25 20:44 Quetiapine Fumarate 100 Mg Tablet FEED TUBE Not Given HS DARRYN Fluticasone/Salmeterol 2 puff 01/28/25 20:00 01/29/25 08:22 Fluticasone/Salmeterol 115-21 Mcg Inhaler 1 Puff INHALATION Not Given Q12HRT [facility] Radiology Results: ITS Impressions Abdomen/Pelvis CT 01/28/25 07:07 IMPRESSION: 1. Acute necrotic pancreatitis. 2. Wall thickening in the esophagus, consistent with edema versus esophagitis. 3. Mild intrahepatic and extrahepatic biliary duct dilatation status post cholecystectomy. MRCP 01/29/25 09:42 IMPRESSION: 1. Status post cholecystectomy with mild intrahepatic ductal or ductal dilation and moderately dilated common hepatic and bile ducts without evident obstructing stone or mass. 2. Acute interstitial pancreatitis with 1 cm nonenhancing region of likely parenchymal necrosis at the tail of the pancreas. 3. Extensive peripancreatic and retroperitoneal edema and small amount of likely reactive ascites in the pelvis. No abscess. 4. Wall thickening along the patulous fluid-filled esophagus which suggests esophagitis. 5.. Additional postoperative change of prior right mastectomy, percutaneous gastrostomy tube placement and surgical clips at the thoracic hiatus. Labs Labs: Laboratory Results - last 24 hr 01/28/25 01/28/25 01/29/25 16:47 23:33 03:45 WBC 23.2 H 22.6 H RBC 5.23 5.00 Hgb 16.0 H 15.4 H Hct 47.1 H 45.1 MCV 90.1 90.2 MCH 30.6 30.8 MCHC 34.0 34.1 RDW 15.9 H 15.9 H Plt Count 445 H 377 H MPV 9.1 9.6 Sodium 137 135 L Potassium 3.0 L 3.0 L Chloride 106 104 Carbon Dioxide 24 25 Anion Gap 7 6 BUN 13 12 Creatinine 0.64 L 0.60 L Estim Creat Clear Calc 63 66 Estimated GFR > 60 > 60 Glucose 98 79 POC Capillary Glucose 97 Calcium 9.3 8.7 Total Bilirubin 0.8 1.0 AST 43 H 44 H ALT 30 26 Alkaline Phosphatase 182 H 163 H C-Reactive Protein 2.5 H 6.8 H Total Protein 7.9 7.6 Albumin 3.6 3.3 L Lipase 4902 H 01/29/25 11:52 WBC RBC Hgb Hct MCV MCH MCHC RDW Plt Count MPV Sodium Potassium Chloride Carbon Dioxide Anion Gap BUN Creatinine Estim Creat Clear Calc Estimated GFR Glucose POC Capillary Glucose 80 Calcium Total Bilirubin AST ALT Alkaline Phosphatase C-Reactive Protein Total Protein Albumin Lipase
[2025-01-29 17:11] LABS: Procalcitonin 0.2 ng/mL
[2025-01-29 17:13] LABS: CRP 19.8 mg/dL (<1.0)
[2025-01-29] MEDS: FLUTICASONE/SALMETEROL 115-21 MCG INHALER 1 PUFF 2 PUFF INHALATION (20:09)
[2025-01-29] MEDS: DOXEPIN HCL 10 MG CAPSULE FEED TUBE (21:04)
[2025-01-29] MEDS: diphenhydrAMINE HCl CAP 25 MG CAPSULE FEED TUBE (21:05)
[2025-01-29] MEDS: MIRTAZAPINE SOLTAB 15 MG TAB.DISPER FEED TUBE (21:05)
--- NOTE | 2025-01-29 22:37 | PC.NURSE ---
This patient, Keren Pereira, was received from [id number] on 01/29/25 at 2220. Patient/family oriented to unit policies and routines
--- NOTE | 2025-01-29 22:49 | PC.NURSE ---
This patient, Keren Pereira, was transferred to [facility] on 01/29/25 at 2217 via bed with one tech and one RN. Personal belongings sent with patient. Report given to May RN. Appropriate documentation sent with patient.
[2025-01-30] VITALS (8 sets, daily range): BP systolic 158–172; BP diastolic 97–114; PULSE 88–112; RESP 16–18; TEMP 36.6–36.7; O2SAT 99–100
[2025-01-30 06:17] LABS: Hematocrit 42.2 % (37.0-47.0); Hemoglobin 14.4 g/dL (12.0-15.0); Immature Granulocyte Percent A 1.0 % (0-0.5); Lymphocytes Absolute Auto 1.60 K/mm3 (0.9-3.2); Mean Corpuscular HGB Conc 34.1 g/dl (32-36); Mean Corpuscular Hemoglobin 30.8 pg (26-34); Mean Corpuscular Volume 90.2 fl (80-100); Nucleated Red Blood Cells Absolute Auto 0.000 K/mm3 (0.0-0.012); Nucleated Red Blood Cells Perc 0.0 % (0.0-0.2); Platelet Count Result 347 k/mm3 (150-375); Red Blood Count 4.68 M/mm3 (4.2-5.4); White Blood Count 17.0 K/mm3 (4.5-10.0)
[2025-01-30 06:39] LABS: Alanine Aminotransferase 25 U/L (6-35); Albumin Level 3.3 g/dL (3.5-5.1); Alkaline Phosphatase 170 U/L (38-126); Anion Gap 7 mmol/L (4-12); Aspartate Amino Transferase 39 U/L (14-36); Bilirubin,Total 1.2 mg/dL (0.2-1.3); Blood Urea Nitrogen 13 mg/dL (7-17); Calcium 8.7 mg/dL (8.4-10.2); Carbon Dioxide 24 mmol/L (22-30); Chloride 101 mmol/L (98-107); Estimated CRCL calculation 56 ml/min; Estimated Glomerular Filt Rate > 60; Glucose 86 mg/dL (65-110); Magnesium 1.8 mg/dL (1.6-2.3); Potassium 2.9 mmol/L (3.4-5.0); Sodium 132 mmol/L (137-145); Total Protein 7.4 g/dL (6.3-8.2)
[2025-01-30] MEDS: MAGNESIUM SULF 1 GM/D5W 100 ML 1 GM/100 ML BAG IVPB (08:19)
[2025-01-30] MEDS: BACLOFEN 10 MG TABLET FEED TUBE ×2 (08:20→20:59)
[2025-01-30] MEDS: FAMOTIDINE 20 MG/2 ML VIAL IV PUSH ×2 (08:21→20:59)
[2025-01-30] MEDS: HYDROmorphone HCL INJ (*CRX) 1 MG/ML SYR IV PUSH ×2 (08:21→13:41)
[2025-01-30] MEDS: POTASSIUM CHLORIDE INJ 40 MEQ in SODIUM CHLORIDE 0.9% IV 500 ML 130 MEQ IVPB (09:38)
[2025-01-30 11:16] LABS: Lipase 1392 U/L (23-300)
--- NOTE | 2025-01-30 15:38 | P.PNGI_ITS ---
Progress Note: A&P Assessment and Plan (1) Acute pancreatitis: Qualifiers: Acute pancreatitis complication: uninfected necrosis Pancreatitis type: idiopathic Qualified Code(s): K85.01 - Idiopathic acute pancreatitis with uninfected necrosis Code(s): K85.90 - Acute pancreatitis without necrosis or infection, unspecified Status: Acute Assessment and Plan: - The patient has moderately severe acute pancreatitis of unclear etiology and is demonstrating a slow but steady favorable clinical course. Current management is centered on controlling her primary symptom of abdominal pain, complicated by her home dependency on daily [place]. Our pain control strategy now will involve transitioning [place] administration via G-tube q 8 hours and increasing the interval for Dilaudid from 3 to 6 hours, an approach agreed by the patient. Will attempt increasing G-tube nutrition intake to meet established nutritional goals. - Today's barium swallow demonstrated a massively dilated esophagus with a bird-beak appearance, classic for achalasia. Once the acute pancreatitis is resolved, the patient will be referred to a tertiary care center to determine the most appropriate palliative treatment for achalasia, which may include either a Peroral Endoscopic Myotomy (POEM) or a Heller myotomy Subjective Date/time seen: 01/30/25 15:38 Interval history: The patient continues to express abdominal pain, 12/07, requiring Dilaudid every 3 hours on schedule. Denies nausea, vomiting and is tolerating tube feeding started yesterday. Labs today: White count 17.0, absolute neutrophils 13.3, hemoglobin 14.4, hematocrit 42.2, potassium 2.9, AST 39, ALT 25. Yesterday's procalcitonin 0.2 (normal) . Exam Narrative: Abdomen soft, tender to deep palpation in both upper quadrants, no rebound, bowel sounds present. Rest of the exam w Objective Data Vital Signs Vital Signs: Vital Signs - 24 hr 01/29/25 15:50 01/29/25 16:00 01/29/25 16:00 Temperature 98 F Pulse Rate 107 H 104 H Respiratory Rate 20 Blood Pressure 163/102 H Pulse Oximetry 99 Oxygen Delivery Room Air 01/29/25 20:00 01/29/25 20:05 01/29/25 20:13 Temperature Pulse Rate 107 H Respiratory Rate 18 Blood Pressure Pulse Oximetry 97 Oxygen Delivery Room Air Room Air 01/29/25 21:35 01/29/25 23:02 01/30/25 06:26 Temperature 97.8 F Pulse Rate 113 H 112 H Respiratory Rate 16 Blood Pressure 150/110 H 132/85 Pulse Oximetry 98 Oxygen Delivery 01/30/25 06:48 01/30/25 14:00 Temperature 98.1 F Pulse Rate 102 H 94 Respiratory Rate 16 Blood Pressure 169/114 H 158/105 H Pulse Oximetry 99 Oxygen Delivery Intake/Output Intake/Output: Intake & Output 01/27/25 01/28/25 01/29/25 01/30/25 23:59 23:59 23:59 23:59 Intake Total 2888.4 2998.3 406 Output Total 500 Balance 2388.4 2998.3 406 Meds/Results Medications: Active Medications Generic Name Dose Route Start Last Admin Trade Name Freq PRN Reason Stop Dose Admin Acetaminophen 325 mg 01/28/25 13:08 Acetaminophen 325 Mg Tablet FEED TUBE Q4H PRN Pain 1-3 Hydrocodone Bitart/Acetaminophen 1 tab 01/30/25 17:00 Hydrocodone/Acetaminophen (*Crx) 10-325 Mg Tablet PO Q8H DARRYN Albuterol 2 puff 01/30/25 12:10 Albuterol Sulfate (*Sp) Aerosol 1 Puff INHALATION Q4HRT PRN Shortness Of Breath Alprazolam 1 mg 01/28/25 13:08 01/29/25 21:06 Alprazolam (*Crx) 0.5 Mg Tablet FEED TUBE 1 mg TID PRN Administration Anxiety Amlodipine Besylate 5 mg 01/30/25 09:00 01/30/25 08:21 Amlodipine Besylate 5 Mg Tablet FEED TUBE 5 mg DAILY DARRYN Administration Baclofen 10 mg 01/28/25 21:00 01/30/25 08:20 Baclofen 10 Mg Tablet FEED TUBE 10 mg Q12HR DARRYN Administration Diphenhydramine HCl 25 mg 01/28/25 13:08 01/29/25 21:05 Diphenhydramine Hcl Cap 25 Mg Capsule FEED TUBE 25 mg BID PRN Administration Itching Doxepin HCl 10 mg 01/28/25 21:00 01/29/25 21:04 Doxepin Hcl 10 Mg Capsule FEED TUBE 10 mg HS DARRYN Administration Famotidine 20 mg 01/28/25 09:00 01/30/25 08:21 Famotidine 20 Mg/2 Ml Vial IV PUSH 20 mg Q12HR DARRYN Administration Hydrocortisone 1 applic 01/28/25 13:17 Hydrocortisone 1% 30 Gm Cream TOPICAL QID PRN wound care Hydromorphone HCl 1 mg 01/30/25 15:07 Hydromorphone Hcl Inj (*Crx) 1 Mg/Ml Syr IV PUSH Q6H PRN Pain Rated 7-10 Lactated Ringer's 1,000 mls @ 100 mls/hr 01/28/25 07:35 01/29/25 22:12 Lr - Lactated Ringers Iv IV CONT 100 mls/hr .Q10H DARRYN Administration Labetalol HCl 10 mg 01/28/25 16:16 01/30/25 06:26 Labetalol Hcl Inj 100 Mg/20 Ml Vial IV PUSH 10 mg Q6H PRN Administration Hypertension Mirtazapine 15 mg 01/28/25 21:00 01/29/25 21:05 Mirtazapine Soltab 15 Mg Tab.Disper FEED TUBE 15 mg HS DARRYN Administration Ondansetron HCl 4 mg 01/28/25 13:09 Ondansetron Inj 4 Mg/2 Ml Vial IV PUSH Q6H PRN Nausea And Vomiting Quetiapine Fumarate 25 mg 01/29/25 09:00 01/30/25 08:21 Quetiapine Fumarate 25 Mg Tablet FEED TUBE 25 mg DAILY DARRYN Administration Quetiapine Fumarate 75 mg 01/28/25 21:00 01/29/25 21:04 Quetiapine Fumarate 25 Mg Tablet FEED TUBE 75 mg HS DARRYN Administration Quetiapine Fumarate 300 mg 01/28/25 21:00 01/29/25 21:05 Quetiapine Fumarate 100 Mg Tablet FEED TUBE 300 mg HS DARRYN Administration Fluticasone/Salmeterol 2 puff 01/28/25 20:00 01/30/25 07:16 Fluticasone/Salmeterol 115-21 Mcg Inhaler 1 Puff INHALATION Not Given Q12HRT [facility] Radiology Results: ITS Impressions Abdomen/Pelvis CT 01/28/25 07:07 IMPRESSION: 1. Acute necrotic pancreatitis. 2. Wall thickening in the esophagus, consistent with edema versus esophagitis. 3. Mild intrahepatic and extrahepatic biliary duct dilatation status post cholecystectomy. MRCP 01/29/25 09:42 IMPRESSION: 1. Status post cholecystectomy with mild intrahepatic ductal or ductal dilation and moderately dilated common hepatic and bile ducts without evident obstructing stone or mass. 2. Acute interstitial pancreatitis with 1 cm nonenhancing region of likely parenchymal necrosis at the tail of the pancreas. 3. Extensive peripancreatic and retroperitoneal edema and small amount of likely reactive ascites in the pelvis. No abscess. 4. Wall thickening along the patulous fluid-filled esophagus which suggests esophagitis. 5.. Additional postoperative change of prior right mastectomy, percutaneous gastrostomy tube placement and surgical clips at the thoracic hiatus. Barium Swallow X-Ray 01/30/25 11:37 IMPRESSION: 1. Patulous esophagus with prominent dysmotility mid to distal esophagus likely secondary to chronic achalasia with delayed intermittent passage of small amounts of contrast beyond the gastroesophageal junction. Labs Labs: Laboratory Results - last 24 hr 01/29/25 01/29/25 01/29/25 16:04 17:55 22:54 WBC RBC Hgb Hct MCV MCH MCHC RDW Plt Count MPV Immature Gran % (Auto) Neut % (Auto) Lymph % (Auto) [place] % (Auto) Eos % (Auto) Baso % (Auto) Lymph # (Auto) [place] # (Auto) Eos # (Auto) Baso # (Auto) Abs Immat Gran (auto) Absolute Neuts (auto) Absolute Nucleated RBC Nucleated RBC % Sodium Potassium Chloride Carbon Dioxide Anion Gap BUN Creatinine Estim Creat Clear Calc Estimated GFR Glucose POC Capillary Glucose 77 76 Calcium Magnesium Total Bilirubin AST ALT Alkaline Phosphatase C-Reactive Protein 19.8 H Total Protein Albumin Lipase Procalcitonin 0.2 01/30/25 06:08 WBC 17.0 H RBC 4.68 Hgb 14.4 Hct 42.2 MCV 90.2 MCH 30.8 MCHC 34.1 RDW 15.8 H Plt Count 347 MPV 9.5 Immature Gran % (Auto) 1.0 H Neut % (Auto) 78.1 H Lymph % (Auto) 9.4 L [place] % (Auto) 10.4 H Eos % (Auto) 0.7 Baso % (Auto) 0.4 Lymph # (Auto) 1.60 [place] # (Auto) 1.8 H Eos # (Auto) 0.1 Baso # (Auto) 0.1 Abs Immat Gran (auto) 0.17 H Absolute Neuts (auto) 13.3 H Absolute Nucleated RBC 0.000 Nucleated RBC % 0.0 Sodium 132 L Potassium 2.9 L Chloride 101 Carbon Dioxide 24 Anion Gap 7 BUN 13 Creatinine 0.72 Estim Creat Clear Calc 56 Estimated GFR > 60 Glucose 86 POC Capillary Glucose Calcium 8.7 Magnesium 1.8 Total Bilirubin 1.2 AST 39 H ALT 25 Alkaline Phosphatase 170 H C-Reactive Protein Total Protein 7.4 Albumin 3.3 L Lipase 1392 H Procalcitonin
[2025-01-30] MEDS: HYDROcodone/acetaminophen (*CRX) 10-325 MG TABLET 1 TAB PO (16:05)
--- NOTE | 2025-01-30 17:20 | PM.IMPN2 ---
Assessment and Plan Assessment and Plan (1) Acute pancreatitis: Qualifiers: Acute pancreatitis complication: uninfected necrosis Pancreatitis type: idiopathic Qualified Code(s): K85.01 - Idiopathic acute pancreatitis with uninfected necrosis Code(s): K85.90 - Acute pancreatitis without necrosis or infection, unspecified Status: Acute (2) Elevated LFTs: Code(s): R79.89 - Other specified abnormal findings of blood chemistry Status: Acute (3) Dilated cbd, acquired: Code(s): K83.8 - Other specified diseases of biliary tract Status: Acute (4) Abdominal pain: Qualifiers: Abdominal location: generalized Qualified Code(s): R10.84 - Generalized abdominal pain Code(s): R10.9 - Unspecified abdominal pain Status: Acute (5) Esophageal abnormality: Code(s): K22.9 - Disease of esophagus, unspecified Status: Acute (6) Gastrojejunal tube present: Code(s): Z93.1 - Gastrostomy status Status: Acute Plan Abdominal pain is little better today. Denies any nausea vomiting. patient with acute pancreatitis, no history of alcohol abuse, most likely idiopathic, Ct scan of the abdomen showed acute necrotic pancreatitis, upon arrival patient lipase levels were 7371 it is now trending down to 1392 and her clinical symptoms are improving, CT scan also showed wall thickening in the esophagus, consistent with edema versus esophagitis GI is concerning classic for achalasia and may need further evaluation at tertiary care, will monitor. This is a 59-year-old female who presented with abdominal pain severe started last night. No nausea vomiting. No aggravating or alleviating factor. In the ED she was hypertensive otherwise afebrile. Laboratory studies showed WBC of 11.8 hemoglobin 15.1 platelet count 389. Sodium 137 potassium 3.2 chloride 104 bicarbonate 27 BUN 16 creatinine 0.7 blood glucose of 132 lactate 1.3 LFT showed total bilirubin of 0.6 AST 57 ALT 38 alkaline phosphatase 183. Lipase came back elevated at 7371. Urinalysis was negative for infection. CT abdomen pelvis showed acute necrotizing pancreatitis. Patient admitted in the setting for further treatment. Acute necrotizing pancreatitis IV fluid resuscitation as ordered. IV Dilaudid p.r.n. IV antiemetics. MRI/MRCP with no evident obstructing stone or mass. Acute interstitial pancreatitis with 1 cm nonenhancing region of likely parenchymal necrosis at the tail of pancreas. Wall thickening along the patulous fluid-filled esophagus with suggest esophagitis. Will start trickle tube feed today per G-tube. Speech to see for aspiration History of aspiration with failed MBS. Has been pleasure feeding. Will have speech see her Mild intrahepatic and extrahepatic biliary duct dilatation status post cholecystectomy MRI MRCP ordered Status post cholecystectomy Elevated LFTs Status post G-tube placement formal nutrition/aspiration. G-tube was exchanged by GI 01/29/2025 at bedside Esophagitis had ppi DVT prophylaxis Lovenox Code status full code Subjective Date/time seen: 01/30/25 17:20 Interval history: Abdominal pain is little better today. Denies any nausea vomiting. patient with acute pancreatitis, no history of alcohol abuse, most likely idiopathic, Ct scan of the abdomen showed acute necrotic pancreatitis, upon arrival patient lipase levels were 7371 it is now trending down to 1392 and her clinical symptoms are improving, CT scan also showed wall thickening in the esophagus, consistent with edema versus esophagitis GI is concerning classic for achalasia and may need further evaluation at tertiary care, will monitor. Review of Systems Review of Systems: - CONSTITUTIONAL: Denies weight loss, fever and chills. - HEENT: Denies changes in vision and hearing - RESPIRATORY: Denies SOB and cough. - CV: Denies palpitations and CP. - GI: Reports abdominal pain, denies nausea, vomiting and diarrhea. - : Denies dysuria and urinary frequency. - MSK: Denies myalgia and joint pain. - SKIN: Denies rash and pruritus. - NEUROLOGICAL: Denies headache and syncope. - PSYCHIATRIC: Denies recent changes in mood. Denies anxiety and depression. All systems reviewed & are unremarkable except as noted in HPI and below Objective Data Vital Signs Vital Signs: Vital Signs - 24 hr 01/29/25 20:00 01/29/25 20:05 01/29/25 20:13 Temperature Pulse Rate 107 H Respiratory Rate 18 Blood Pressure Pulse Oximetry 97 Oxygen Delivery Room Air Room Air 01/29/25 21:35 01/29/25 23:02 01/30/25 06:26 Temperature 36.6 C Pulse Rate 113 H 112 H Respiratory Rate 16 Blood Pressure 150/110 H 132/85 Pulse Oximetry 98 Oxygen Delivery 01/30/25 06:48 01/30/25 14:00 01/30/25 16:47 Temperature 36.7 C Pulse Rate 102 H 94 96 Respiratory Rate 16 Blood Pressure 169/114 H 158/105 H Pulse Oximetry 99 Oxygen Delivery 01/30/25 16:49 Temperature Pulse Rate Respiratory Rate Blood Pressure 172/106 H Pulse Oximetry Oxygen Delivery Intake/Output Intake/Output: Intake & Output 01/27/25 01/28/25 01/29/25 01/30/25 23:59 23:59 23:59 23:59 Intake Total 2888.4 2998.3 406 Output Total 500 Balance 2388.4 2998.3 406 Meds/Results Medications: Active Medications Generic Name Dose Route Start Last Admin Trade Name Freq PRN Reason Stop Dose Admin Acetaminophen 325 mg 01/28/25 13:08 Acetaminophen 325 Mg Tablet FEED TUBE Q4H PRN Pain 1-3 Hydrocodone Bitart/Acetaminophen 1 tab 01/30/25 17:00 01/30/25 16:05 Hydrocodone/Acetaminophen (*Crx) 10-325 Mg Tablet PO 1 tab Q8H DARRYN Administration Albuterol 2 puff 01/30/25 12:10 Albuterol Sulfate (*Sp) Aerosol 1 Puff INHALATION Q4HRT PRN Shortness Of Breath Alprazolam 1 mg 01/28/25 13:08 01/29/25 21:06 Alprazolam (*Crx) 0.5 Mg Tablet FEED TUBE 1 mg TID PRN Administration Anxiety Amlodipine Besylate 5 mg 01/30/25 09:00 01/30/25 08:21 Amlodipine Besylate 5 Mg Tablet FEED TUBE 5 mg DAILY DARRYN Administration Baclofen 10 mg 01/28/25 21:00 01/30/25 08:20 Baclofen 10 Mg Tablet FEED TUBE 10 mg Q12HR DARRYN Administration Diphenhydramine HCl 25 mg 01/28/25 13:08 01/29/25 21:05 Diphenhydramine Hcl Cap 25 Mg Capsule FEED TUBE 25 mg BID PRN Administration Itching Doxepin HCl 10 mg 01/28/25 21:00 01/29/25 21:04 Doxepin Hcl 10 Mg Capsule FEED TUBE 10 mg HS DARRYN Administration Famotidine 20 mg 01/28/25 09:00 01/30/25 08:21 Famotidine 20 Mg/2 Ml Vial IV PUSH 20 mg Q12HR DARRYN Administration Hydrocortisone 1 applic 01/28/25 13:17 Hydrocortisone 1% 30 Gm Cream TOPICAL QID PRN wound care Hydromorphone HCl 1 mg 01/30/25 15:07 Hydromorphone Hcl Inj (*Crx) 1 Mg/Ml Syr IV PUSH Q6H PRN Pain Rated 7-10 Lactated Ringer's 1,000 mls @ 100 mls/hr 01/28/25 07:35 01/29/25 22:12 Lr - Lactated Ringers Iv IV CONT 100 mls/hr .Q10H DARRYN Administration Labetalol HCl 10 mg 01/28/25 16:16 01/30/25 16:47 Labetalol Hcl Inj 100 Mg/20 Ml Vial IV PUSH 10 mg Q6H PRN Administration Hypertension Mirtazapine 15 mg 01/28/25 21:00 01/29/25 21:05 Mirtazapine Soltab 15 Mg Tab.Disper FEED TUBE 15 mg HS DARRYN Administration Ondansetron HCl 4 mg 01/28/25 13:09 Ondansetron Inj 4 Mg/2 Ml Vial IV PUSH Q6H PRN Nausea And Vomiting Quetiapine Fumarate 25 mg 01/29/25 09:00 01/30/25 08:21 Quetiapine Fumarate 25 Mg Tablet FEED TUBE 25 mg DAILY DARRYN Administration Quetiapine Fumarate 75 mg 01/28/25 21:00 01/29/25 21:04 Quetiapine Fumarate 25 Mg Tablet FEED TUBE 75 mg HS DARRYN Administration Quetiapine Fumarate 300 mg 01/28/25 21:00 01/29/25 21:05 Quetiapine Fumarate 100 Mg Tablet FEED TUBE 300 mg HS DARRYN Administration Fluticasone/Salmeterol 2 puff 01/28/25 20:00 01/30/25 07:16 Fluticasone/Salmeterol 115-21 Mcg Inhaler 1 Puff INHALATION Not Given Q12HRT [facility] Radiology Results: ITS Impressions Abdomen/Pelvis CT 01/28/25 07:07 IMPRESSION: 1. Acute necrotic pancreatitis. 2. Wall thickening in the esophagus, consistent with edema versus esophagitis. 3. Mild intrahepatic and extrahepatic biliary duct dilatation status post cholecystectomy. MRCP 01/29/25 09:42 IMPRESSION: 1. Status post cholecystectomy with mild intrahepatic ductal or ductal dilation and moderately dilated common hepatic and bile ducts without evident obstructing stone or mass. 2. Acute interstitial pancreatitis with 1 cm nonenhancing region of likely parenchymal necrosis at the tail of the pancreas. 3. Extensive peripancreatic and retroperitoneal edema and small amount of likely reactive ascites in the pelvis. No abscess. 4. Wall thickening along the patulous fluid-filled esophagus which suggests esophagitis. 5.. Additional postoperative change of prior right mastectomy, percutaneous gastrostomy tube placement and surgical clips at the thoracic hiatus. Barium Swallow X-Ray 01/30/25 11:37 IMPRESSION: 1. Patulous esophagus with prominent dysmotility mid to distal esophagus likely secondary to chronic achalasia with delayed intermittent passage of small amounts of contrast beyond the gastroesophageal junction. Labs Labs: Laboratory Results - last 24 hr 01/29/25 01/29/25 01/30/25 17:55 22:54 06:08 WBC 17.0 H RBC 4.68 Hgb 14.4 Hct 42.2 MCV 90.2 MCH 30.8 MCHC 34.1 RDW 15.8 H Plt Count 347 MPV 9.5 Immature Gran % (Auto) 1.0 H Neut % (Auto) 78.1 H Lymph % (Auto) 9.4 L [place] % (Auto) 10.4 H Eos % (Auto) 0.7 Baso % (Auto) 0.4 Lymph # (Auto) 1.60 [place] # (Auto) 1.8 H Eos # (Auto) 0.1 Baso # (Auto) 0.1 Abs Immat Gran (auto) 0.17 H Absolute Neuts (auto) 13.3 H Absolute Nucleated RBC 0.000 Nucleated RBC % 0.0 Sodium 132 L Potassium 2.9 L Chloride 101 Carbon Dioxide 24 Anion Gap 7 BUN 13 Creatinine 0.72 Estim Creat Clear Calc 56 Estimated GFR > 60 Glucose 86 POC Capillary Glucose 77 76 Calcium 8.7 Magnesium 1.8 Total Bilirubin 1.2 AST 39 H ALT 25 Alkaline Phosphatase 170 H Total Protein 7.4 Albumin 3.3 L Lipase 1392 H
[2025-01-30 17:39] LABS: CRP 19.2 mg/dL (<1.0)
[2025-01-30] MEDS: MIRTAZAPINE SOLTAB 15 MG TAB.DISPER FEED TUBE (20:59)
[2025-01-30] MEDS: DOXEPIN HCL 10 MG CAPSULE FEED TUBE (20:59)
[2025-01-30] MEDS: ALPRAZolam (*CRX) 0.5 MG TABLET 1 MG FEED TUBE (21:00)
[2025-01-30] MEDS: LACTATED RINGERS 1,000 ML 100 ML IV CONT (23:33)
[2025-01-31] MEDS: HYDROcodone/acetaminophen (*CRX) 10-325 MG TABLET 1 TAB PO ×3 (00:46→17:11)
[2025-01-31 05:10] VITALS: BP 138/97; PULSE 93; RESP 16; TEMP 36.5; O2SAT 100
[2025-01-31 06:26] LABS: Hematocrit 40.8 % (37.0-47.0); Hemoglobin 13.9 g/dL (12.0-15.0); Mean Corpuscular HGB Conc 34.1 g/dl (32-36); Mean Corpuscular Hemoglobin 31.0 pg (26-34); Mean Corpuscular Volume 90.9 fl (80-100); Platelet Count Result 315 k/mm3 (150-375); Red Blood Count 4.49 M/mm3 (4.2-5.4); White Blood Count 13.0 K/mm3 (4.5-10.0)
[2025-01-31 06:36] LABS: Alanine Aminotransferase 23 U/L (6-35); Albumin Level 3.2 g/dL (3.5-5.1); Alkaline Phosphatase 163 U/L (38-126); Anion Gap 6 mmol/L (4-12); Aspartate Amino Transferase 39 U/L (14-36); Bilirubin,Total 1.1 mg/dL (0.2-1.3); Blood Urea Nitrogen 13 mg/dL (7-17); Calcium 8.8 mg/dL (8.4-10.2); Carbon Dioxide 24 mmol/L (22-30); Chloride 106 mmol/L (98-107); Estimated CRCL calculation 55 ml/min; Estimated Glomerular Filt Rate > 60; Glucose 90 mg/dL (65-110); Magnesium 2.1 mg/dL (1.6-2.3); Potassium 3.1 mmol/L (3.4-5.0); Sodium 136 mmol/L (137-145); Total Protein 7.2 g/dL (6.3-8.2)
[2025-01-31] MEDS: FLUTICASONE/SALMETEROL 115-21 MCG INHALER 1 PUFF 2 PUFF INHALATION ×2 (07:56→21:45)
[2025-01-31 07:59] VITALS: PULSE 102; RESP 17
[2025-01-31 09:24] LABS: Lipase 1277 U/L (23-300)
[2025-01-31] MEDS: FAMOTIDINE 20 MG/2 ML VIAL IV PUSH ×2 (09:48→20:04)
[2025-01-31] MEDS: BACLOFEN 10 MG TABLET FEED TUBE ×2 (09:55→20:05)
[2025-01-31] MEDS: ALPRAZolam (*CRX) 0.5 MG TABLET 1 MG FEED TUBE ×2 (10:09→20:09)
[2025-01-31] MEDS: LACTATED RINGERS 1,000 ML 100 ML IV CONT ×2 (10:10→20:02)
--- NOTE | 2025-01-31 11:57 | PCNFU ---
Nutrition Follow-Up Complete: Swallowing difficulty related to dysphagia as evidenced by need for tube feeding for sole source of nutrition. Meet estimated needs via tube feeding - Slow progress with goal. Continue with goal Tolerance of tube feeds - Continue with goal Goal: Pt current nutrition is [place]ev[place] 1.5 @ 20 ml/h with flushes 30 ml q 4 h. Nutrition recommendation: Increase goal rate to [place] 1.5 @ 60 ml/h. Advance 10 ml q 4 hours as tolerated with pancreatitis. Flush 30 ml q 4 hours Last recorded weight is 58.7 kg. Bowel Motility: No bowel movements are charted Labs Reviewed: Alb 3.2, Na 136, K+ 3.1 Meds Noted: Mirtazipine, LR @ 100 ml/h Skin: No skin issues Additional Notes: Pt is hard to communicate but able to tell me that she runs her tube feedings 20 hours per day. Jevity 1.5 @ 67 ml/h reported. We will increase tube feeding rate to 60 ml/h goal to provide 1980 kcal, 84 g protein, 1003 lm free water. Discussed with MD and RN to advance 10 ml q 4 hours as tolerated considering her pancreatitis pain. Can increase flushes when fluids are decreased. Continue to follow Monitor tube feeding, tolerance, wt, labs. Follow up every Tuesday and Tuesday
[2025-01-31 14:00] VITALS: BP 147/120; PULSE 107; RESP 20; TEMP 36.4; O2SAT 100
--- NOTE | 2025-01-31 16:07 | P.PNIM_ITS ---
Assessment and Plan Assessment and Plan (1) Acute pancreatitis: Qualifiers: Acute pancreatitis complication: uninfected necrosis Pancreatitis type: idiopathic Qualified Code(s): K85.01 - Idiopathic acute pancreatitis with uninfected necrosis Code(s): K85.90 - Acute pancreatitis without necrosis or infection, unspecified Status: Acute (2) Elevated LFTs: Code(s): R79.89 - Other specified abnormal findings of blood chemistry Status: Acute (3) Dilated cbd, acquired: Code(s): K83.8 - Other specified diseases of biliary tract Status: Acute (4) Abdominal pain: Qualifiers: Abdominal location: generalized Qualified Code(s): R10.84 - Generalized abdominal pain Code(s): R10.9 - Unspecified abdominal pain Status: Acute (5) Esophageal abnormality: Code(s): K22.9 - Disease of esophagus, unspecified Status: Acute (6) Gastrojejunal tube present: Code(s): Z93.1 - Gastrostomy status Status: Acute Plan Abdominal pain is little better today. Denies any nausea vomiting. patient with acute pancreatitis, no history of alcohol abuse, most likely idiopathic, Ct scan of the abdomen showed acute necrotic pancreatitis, upon arrival patient lipase levels were 7371 it is now trending down to 1392 and her clinical symptoms are improving, CT scan also showed wall thickening in the esophagus, consistent with edema versus esophagitis GI is concerning classic for achalasia and may need further evaluation at tertiary care. Patient also had XR barium swallow which showed patulous esophagus with prominent dysmotility mid to distal esophagus likely secondary to chronic achalasia with delayed intermittent passage of small amounts of contrast beyond the gastroesophageal junction. patient lipase are trending down to 1227 compared to when arrived 7371, patient clinical symptoms are improving, will monitor. This is a 59-year-old female who presented with abdominal pain severe started last night. No nausea vomiting. No aggravating or alleviating factor. In the ED she was hypertensive otherwise afebrile. Laboratory studies showed WBC of 11.8 hemoglobin 15.1 platelet count 389. Sodium 137 potassium 3.2 chloride 104 bicarbonate 27 BUN 16 creatinine 0.7 blood glucose of 132 lactate 1.3 LFT showed total bilirubin of 0.6 AST 57 ALT 38 alkaline phosphatase 183. Lipase came back elevated at 7371. Urinalysis was negative for infection. CT abdomen pelvis showed acute necrotizing pancreatitis. Patient admitted in the setting for further treatment. Acute necrotizing pancreatitis IV fluid resuscitation as ordered. IV Dilaudid p.r.n. IV antiemetics. MRI/MRCP with no evident obstructing stone or mass. Acute interstitial pancreatitis with 1 cm nonenhancing region of likely parenchymal necrosis at the tail of pancreas. Wall thickening along the patulous fluid-filled esophagus with suggest esophagitis. Will start trickle tube feed today per G-tube. Speech to see for aspiration History of aspiration with failed MBS. Has been pleasure feeding. Will have speech see her Mild intrahepatic and extrahepatic biliary duct dilatation status post cholecystectomy MRI MRCP ordered Status post cholecystectomy Elevated LFTs Status post G-tube placement formal nutrition/aspiration. G-tube was exchanged by GI 01/29/2025 at bedside Esophagitis had ppi DVT prophylaxis Lovenox Code status full code Subjective Date/time seen: 01/31/25 16:07 Interval history: Abdominal pain is little better today. Denies any nausea vomiting. patient with acute pancreatitis, no history of alcohol abuse, most likely idiopathic, Ct scan of the abdomen showed acute necrotic pancreatitis, upon arrival patient lipase levels were 7371 it is now trending down to 1392 and her clinical symptoms are improving, CT scan also showed wall thickening in the esophagus, consistent with edema versus esophagitis GI is concerning classic for achalasia and may need further evaluation at tertiary care. Patient also had XR barium swallow which showed patulous esophagus with prominent dysmotility mid to distal esophagus likely secondary to chronic achalasia with delayed intermittent passage of small amounts of contrast beyond the gastroesophageal junction. patient lipase are trending down to 1227 compared to when arrived 7371, patient clinical symptoms are improving, will monitor. Review of Systems Review of Systems: - CONSTITUTIONAL: Denies weight loss, fe dana and chills. - HEENT: Denies changes in vision and he aring - RESPIRATORY: Denies SOB and cough. - CV: Denies palpitations and CP. - GI: Reports abdominal pain, denies na usea, vomiting and diarrhea. - : Denies dysuria and urinary frequen cy. - MSK: Denies myalgia and joint pain. - SKIN: Denies rash and pruritus. - NEUROLOGICAL: Denies headache and sync ope. - PSYCHIATRIC: Denies recent changes in mood. Denies anxiety and depression. All systems reviewed & are unremarkable except as noted in HPI and below Exam Narrative: GENERAL: Well-appearing, well-nourished, not in acute distress HEAD: Normocephalic, atraumatic. EYES: PERRLA and EOMI. ENT: Nares clear, no rhinorrhea or epistaxis. Mucous membranes dry. NECK: Supple. CHEST: Clear to auscultation. No respiratory distress. HEART: Regular rate and rhythm. No murmur heard. Normal peripheral pulses. ABDOMEN: Soft, diffusely tender in epigastric area, nondistended, normal active bowel sounds. G-tube in place EXTREMITIES: Normal range of motion. No edema. SKIN: Warm, dry, no rash. NEURO: No focal deficits. Alert and oriented x3. PSYCH: Normal mood and affect. Objective Data Vital Signs Vital Signs: Vital Signs - 24 hr 01/30/25 16:47 01/30/25 16:49 01/30/25 18:37 Temperature Pulse Rate 96 Respiratory Rate Blood Pressure 172/106 H 162/104 H Pulse Oximetry Oxygen Delivery 01/30/25 20:00 01/30/25 20:41 01/30/25 23:34 Temperature 36.6 C Pulse Rate 91 88 Respiratory Rate 18 Blood Pressure 167/97 H Pulse Oximetry 100 Oxygen Delivery Room Air 01/31/25 05:10 01/31/25 07:59 01/31/25 14:00 Temperature 36.5 C 36.4 C Pulse Rate 93 102 H 107 H Respiratory Rate 16 17 20 Blood Pressure 138/97 H 147/120 H Pulse Oximetry 100 100 Oxygen Delivery Intake/Output Intake/Output: Intake & Output 01/28/25 01/29/25 01/30/25 01/31/25 23:59 23:59 23:59 23:59 Intake Total 2888.4 2998.3 1406 1360 Output Total 500 Balance 2388.4 2998.3 1406 1360 Meds/Results Medications: Active Medications Generic Name Dose Route Start Last Admin Trade Name Freq PRN Reason Stop Dose Admin Acetaminophen 325 mg 01/28/25 13:08 Acetaminophen 325 Mg Tablet FEED TUBE Q4H PRN Pain 1-3 Hydrocodone Bitart/Acetaminophen 1 tab 01/30/25 17:00 01/31/25 10:01 Hydrocodone/Acetaminophen (*Crx) 10-325 Mg Tablet PO 1 tab Q8H DARRYN Administration Albuterol 2 puff 01/30/25 12:10 Albuterol Sulfate (*Sp) Aerosol 1 Puff INHALATION Q4HRT PRN Shortness Of Breath Alprazolam 1 mg 01/28/25 13:08 01/31/25 10:09 Alprazolam (*Crx) 0.5 Mg Tablet FEED TUBE 1 mg TID PRN Administration Anxiety Amlodipine Besylate 5 mg 01/30/25 09:00 01/31/25 09:55 Amlodipine Besylate 5 Mg Tablet FEED TUBE 5 mg DAILY DARRYN Administration Baclofen 10 mg 01/28/25 21:00 01/31/25 09:55 Baclofen 10 Mg Tablet FEED TUBE 10 mg Q12HR DARRYN Administration Diphenhydramine HCl 25 mg 01/28/25 13:08 01/29/25 21:05 Diphenhydramine Hcl Cap 25 Mg Capsule FEED TUBE 25 mg BID PRN Administration Itching Doxepin HCl 10 mg 01/28/25 21:00 01/30/25 20:59 Doxepin Hcl 10 Mg Capsule FEED TUBE 10 mg HS DARRYN Administration Famotidine 20 mg 01/28/25 09:00 01/31/25 09:48 Famotidine 20 Mg/2 Ml Vial IV PUSH 20 mg Q12HR DARRYN Administration Hydrocortisone 1 applic 01/28/25 13:17 Hydrocortisone 1% 30 Gm Cream TOPICAL QID PRN wound care Hydromorphone HCl 1 mg 01/30/25 15:07 Hydromorphone Hcl Inj (*Crx) 1 Mg/Ml Syr IV PUSH Q6H PRN Pain Rated 7-10 Lactated Ringer's 1,000 mls @ 100 mls/hr 01/28/25 07:35 01/31/25 10:10 Lr - Lactated Ringers Iv IV CONT 100 mls/hr .Q10H DARRYN Administration Labetalol HCl 10 mg 01/28/25 16:16 01/30/25 23:34 Labetalol Hcl Inj 100 Mg/20 Ml Vial IV PUSH 10 mg Q6H PRN Administration Hypertension Mirtazapine 15 mg 01/28/25 21:00 01/30/25 20:59 Mirtazapine Soltab 15 Mg Tab.Disper FEED TUBE 15 mg HS DARRYN Administration Ondansetron HCl 4 mg 01/28/25 13:09 Ondansetron Inj 4 Mg/2 Ml Vial IV PUSH Q6H PRN Nausea And Vomiting Quetiapine Fumarate 25 mg 01/29/25 09:00 01/31/25 09:55 Quetiapine Fumarate 25 Mg Tablet FEED TUBE 25 mg DAILY DARRYN Administration Quetiapine Fumarate 75 mg 01/28/25 21:00 01/30/25 20:59 Quetiapine Fumarate 25 Mg Tablet FEED TUBE 75 mg HS DARRYN Administration Quetiapine Fumarate 300 mg 01/28/25 21:00 01/30/25 21:00 Quetiapine Fumarate 100 Mg Tablet FEED TUBE 300 mg HS DARRYN Administration Fluticasone/Salmeterol 2 puff 01/28/25 20:00 01/31/25 07:56 Fluticasone/Salmeterol 115-21 Mcg Inhaler 1 Puff INHALATION 2 puff Q12HRT DARRYN Administration Radiology Results: ITS Impressions Abdomen/Pelvis CT 01/28/25 07:07 IMPRESSION: 1. Acute necrotic pancreatitis. 2. Wall thickening in the esophagus, consistent with edema versus esophagitis. 3. Mild intrahepatic and extrahepatic biliary duct dilatation status post cholecystectomy. MRCP 01/29/25 09:42 IMPRESSION: 1. Status post cholecystectomy with mild intrahepatic ductal or ductal dilation and moderately dilated common hepatic and bile ducts without evident obstructing stone or mass. 2. Acute interstitial pancreatitis with 1 cm nonenhancing region of likely parenchymal necrosis at the tail of the pancreas. 3. Extensive peripancreatic and retroperitoneal edema and small amount of likely reactive ascites in the pelvis. No abscess. 4. Wall thickening along the patulous fluid-filled esophagus which suggests esophagitis. 5.. Additional postoperative change of prior right mastectomy, percutaneous gastrostomy tube placement and surgical clips at the thoracic hiatus. Barium Swallow X-Ray 01/30/25 11:37 IMPRESSION: 1. Patulous esophagus with prominent dysmotility mid to distal esophagus likely secondary to chronic achalasia with delayed intermittent passage of small amounts of contrast beyond the gastroesophageal junction. Labs Labs: Laboratory Results - last 24 hr 01/30/25 01/30/25 01/30/25 17:01 18:29 23:32 WBC RBC Hgb Hct MCV MCH MCHC RDW Plt Count MPV Sodium Potassium Chloride Carbon Dioxide Anion Gap BUN Creatinine Estim Creat Clear Calc Estimated GFR Glucose POC Capillary Glucose 96 102 Calcium Magnesium Total Bilirubin AST ALT Alkaline Phosphatase C-Reactive Protein 19.2 H Total Protein Albumin Lipase 01/31/25 01/31/25 01/31/25 06:02 06:05 11:32 WBC 13.0 H RBC 4.49 Hgb 13.9 Hct 40.8 MCV 90.9 MCH 31.0 MCHC 34.1 RDW 15.9 H Plt Count 315 MPV 10.0 Sodium 136 L Potassium 3.1 L Chloride 106 Carbon Dioxide 24 Anion Gap 6 BUN 13 Creatinine 0.74 Estim Creat Clear Calc 55 Estimated GFR > 60 Glucose 90 POC Capillary Glucose 92 103 Calcium 8.8 Magnesium 2.1 Total Bilirubin 1.1 AST 39 H ALT 23 Alkaline Phosphatase 163 H C-Reactive Protein Total Protein 7.2 Albumin 3.2 L Lipase 1277 H
[2025-01-31 17:03] LABS: CRP 13.9 mg/dL (<1.0)
--- NOTE | 2025-01-31 17:31 | P.PNGI_ITS ---
Progress Note: A&P Assessment and Plan (1) Acute pancreatitis: Qualifiers: Acute pancreatitis complication: uninfected necrosis Pancreatitis type: idiopathic Qualified Code(s): K85.01 - Idiopathic acute pancreatitis with uninfected necrosis Code(s): K85.90 - Acute pancreatitis without necrosis or infection, unspecified Status: Acute Assessment and Plan: - The patient is having a moderately severe episode of acute pancreatitis of undetermined etiology, currently with a favorable clinical course. The normal procalcitonin level measured yesterday supports the clinical suspicion that the observed leukocytosis is secondary to SIRS rather than an active infectious process. - Pain management is achieved with Hartman (which she uses for back pain at home) and there are no further pain episodes warranting Dilaudid. - Imaging studies show that the disease is predominantly characterized by peripancreatic edema, which may be compressing the biliary tree explaining the specific changes noted on CT and MRI, although a small area of necrosis is present in the pancreatic tail. - She is tolerating progressive advancements in her Jevity infusion via the gastrostomy tube. Input from nutrition services is appreciated to help the patient reach her established nutritional goals, and once these are met, discharge home will be appropriate. - A referral to [facility] for management of her chronic achalasia will be placed once her condition is more stable following the resolution of the acute pancreatitis, in 4-6 weeks. Subjective Date/time seen: 01/31/25 17:31 Interval history: The patient feels less abdominal pain today. She has not required any intravenous Dilaudid and is only receiving Hartman per G-tube 3 times a day, her usual dose for back pain which is also enough to control abdominal pain. She had had 2 formed bowel movement. Jevity at a rate of 30 mL an hour is being tolerated and monitor by Nutrition Service. Labs today: WBC 13.0, hemoglobin 13.9, hematocrit 40.8, sodium 136, potassium 3.1, AST 39, ALT 23, CRP 19.2. Exam Narrative: Abdomen soft, less tender, no rebound tenderness. Objective Data Vital Signs Vital Signs: Vital Signs - 24 hr 01/30/25 18:37 01/30/25 20:00 01/30/25 20:41 Temperature 97.9 F Pulse Rate 91 Respiratory Rate 18 Blood Pressure 162/104 H 167/97 H Pulse Oximetry 100 Oxygen Delivery Room Air 01/30/25 23:34 01/31/25 05:10 01/31/25 07:59 Temperature 97.7 F Pulse Rate 88 93 102 H Respiratory Rate 16 17 Blood Pressure 138/97 H Pulse Oximetry 100 Oxygen Delivery 01/31/25 14:00 Temperature 97.6 F Pulse Rate 107 H Respiratory Rate 20 Blood Pressure 147/120 H Pulse Oximetry 100 Oxygen Delivery Intake/Output Intake/Output: Intake & Output 01/28/25 01/29/25 01/30/25 01/31/25 23:59 23:59 23:59 23:59 Intake Total 2888.4 2998.3 1406 1360 Output Total 500 Balance 2388.4 2998.3 1406 1360 Meds/Results Medications: Active Medications Generic Name Dose Route Start Last Admin Trade Name Freq PRN Reason Stop Dose Admin Acetaminophen 325 mg 01/28/25 13:08 Acetaminophen 325 Mg Tablet FEED TUBE Q4H PRN Pain 1-3 Hydrocodone Bitart/Acetaminophen 1 tab 01/30/25 17:00 01/31/25 17:11 Hydrocodone/Acetaminophen (*Crx) 10-325 Mg Tablet PO 1 tab Q8H DARRYN Administration Albuterol 2 puff 01/30/25 12:10 Albuterol Sulfate (*Sp) Aerosol 1 Puff INHALATION Q4HRT PRN Shortness Of Breath Alprazolam 1 mg 01/28/25 13:08 01/31/25 10:09 Alprazolam (*Crx) 0.5 Mg Tablet FEED TUBE 1 mg TID PRN Administration Anxiety Amlodipine Besylate 5 mg 01/30/25 09:00 01/31/25 09:55 Amlodipine Besylate 5 Mg Tablet FEED TUBE 5 mg DAILY DARRYN Administration Baclofen 10 mg 01/28/25 21:00 01/31/25 09:55 Baclofen 10 Mg Tablet FEED TUBE 10 mg Q12HR DARRYN Administration Diphenhydramine HCl 25 mg 01/28/25 13:08 01/29/25 21:05 Diphenhydramine Hcl Cap 25 Mg Capsule FEED TUBE 25 mg BID PRN Administration Itching Doxepin HCl 10 mg 01/28/25 21:00 01/30/25 20:59 Doxepin Hcl 10 Mg Capsule FEED TUBE 10 mg HS DARRYN Administration Famotidine 20 mg 01/28/25 09:00 01/31/25 09:48 Famotidine 20 Mg/2 Ml Vial IV PUSH 20 mg Q12HR DARRYN Administration Hydrocortisone 1 applic 01/28/25 13:17 Hydrocortisone 1% 30 Gm Cream TOPICAL QID PRN wound care Hydromorphone HCl 1 mg 01/30/25 15:07 Hydromorphone Hcl Inj (*Crx) 1 Mg/Ml Syr IV PUSH Q6H PRN Pain Rated 7-10 Lactated Ringer's 1,000 mls @ 100 mls/hr 01/28/25 07:35 01/31/25 10:10 Lr - Lactated Ringers Iv IV CONT 100 mls/hr .Q10H DARRYN Administration Labetalol HCl 10 mg 01/28/25 16:16 01/30/25 23:34 Labetalol Hcl Inj 100 Mg/20 Ml Vial IV PUSH 10 mg Q6H PRN Administration Hypertension Mirtazapine 15 mg 01/28/25 21:00 01/30/25 20:59 Mirtazapine Soltab 15 Mg Tab.Disper FEED TUBE 15 mg HS DARRYN Administration Ondansetron HCl 4 mg 01/28/25 13:09 Ondansetron Inj 4 Mg/2 Ml Vial IV PUSH Q6H PRN Nausea And Vomiting Quetiapine Fumarate 25 mg 01/29/25 09:00 01/31/25 09:55 Quetiapine Fumarate 25 Mg Tablet FEED TUBE 25 mg DAILY DARRYN Administration Quetiapine Fumarate 75 mg 01/28/25 21:00 01/30/25 20:59 Quetiapine Fumarate 25 Mg Tablet FEED TUBE 75 mg HS DARRYN Administration Quetiapine Fumarate 300 mg 01/28/25 21:00 01/30/25 21:00 Quetiapine Fumarate 100 Mg Tablet FEED TUBE 300 mg HS DARRYN Administration Fluticasone/Salmeterol 2 puff 01/28/25 20:00 01/31/25 07:56 Fluticasone/Salmeterol 115-21 Mcg Inhaler 1 Puff INHALATION 2 puff Q12HRT DARRYN Administration Radiology Results: ITS Impressions Abdomen/Pelvis CT 01/28/25 07:07 IMPRESSION: 1. Acute necrotic pancreatitis. 2. Wall thickening in the esophagus, consistent with edema versus esophagitis. 3. Mild intrahepatic and extrahepatic biliary duct dilatation status post cholecystectomy. MRCP 01/29/25 09:42 IMPRESSION: 1. Status post cholecystectomy with mild intrahepatic ductal or ductal dilation and moderately dilated common hepatic and bile ducts without evident obstructing stone or mass. 2. Acute interstitial pancreatitis with 1 cm nonenhancing region of likely parenchymal necrosis at the tail of the pancreas. 3. Extensive peripancreatic and retroperitoneal edema and small amount of likely reactive ascites in the pelvis. No abscess. 4. Wall thickening along the patulous fluid-filled esophagus which suggests esophagitis. 5.. Additional postoperative change of prior right mastectomy, percutaneous gastrostomy tube placement and surgical clips at the thoracic hiatus. Barium Swallow X-Ray 01/30/25 11:37 IMPRESSION: 1. Patulous esophagus with prominent dysmotility mid to distal esophagus likely secondary to chronic achalasia with delayed intermittent passage of small amounts of contrast beyond the gastroesophageal junction. Labs Labs: Laboratory Results - last 24 hr 01/30/25 01/30/25 01/30/25 17:01 18:29 23:32 WBC RBC Hgb Hct MCV MCH MCHC RDW Plt Count MPV Sodium Potassium Chloride Carbon Dioxide Anion Gap BUN Creatinine Estim Creat Clear Calc Estimated GFR Glucose POC Capillary Glucose 96 102 Calcium Magnesium Total Bilirubin AST ALT Alkaline Phosphatase C-Reactive Protein 19.2 H Total Protein Albumin Lipase 01/31/25 01/31/25 01/31/25 06:02 06:05 11:32 WBC 13.0 H RBC 4.49 Hgb 13.9 Hct 40.8 MCV 90.9 MCH 31.0 MCHC 34.1 RDW 15.9 H Plt Count 315 MPV 10.0 Sodium 136 L Potassium 3.1 L Chloride 106 Carbon Dioxide 24 Anion Gap 6 BUN 13 Creatinine 0.74 Estim Creat Clear Calc 55 Estimated GFR > 60 Glucose 90 POC Capillary Glucose 92 103 Calcium 8.8 Magnesium 2.1 Total Bilirubin 1.1 AST 39 H ALT 23 Alkaline Phosphatase 163 H C-Reactive Protein Total Protein 7.2 Albumin 3.2 L Lipase 1277 H 01/31/25 16:26 WBC RBC Hgb Hct MCV MCH MCHC RDW Plt Count MPV Sodium Potassium Chloride Carbon Dioxide Anion Gap BUN Creatinine Estim Creat Clear Calc Estimated GFR Glucose POC Capillary Glucose Calcium Magnesium Total Bilirubin AST ALT Alkaline Phosphatase C-Reactive Protein 13.9 H Total Protein Albumin Lipase
[2025-01-31] MEDS: DOXEPIN HCL 10 MG CAPSULE FEED TUBE (20:04)
[2025-01-31] MEDS: MIRTAZAPINE SOLTAB 15 MG TAB.DISPER FEED TUBE (20:05)
[2025-01-31 21:43] VITALS: BP 116/89; PULSE 109; RESP 20; TEMP 36.6; O2SAT 100
[2025-01-31 21:45] VITALS: PULSE 108; RESP 14; O2SAT 95
[2025-02-01] MEDS: HYDROcodone/acetaminophen (*CRX) 10-325 MG TABLET 1 TAB PO ×4 (00:03→23:58)
[2025-02-01 06:00] VITALS: BP 157/93; PULSE 104; RESP 20; TEMP 35.9; O2SAT 95
[2025-02-01] MEDS: LACTATED RINGERS 1,000 ML 100 ML IV CONT ×2 (06:14→22:15)
--- NOTE | 2025-02-01 07:22 | WPDGIPROGNO ---
Progress Note: A&P Assessment and Plan (1) Acute pancreatitis: Qualifiers: Acute pancreatitis complication: uninfected necrosis Pancreatitis type: idiopathic Qualified Code(s): K85.01 - Idiopathic acute pancreatitis with uninfected necrosis Code(s): K85.90 - Acute pancreatitis without necrosis or infection, unspecified Status: Acute Assessment and Plan: Patient with moderately severe acute pancreatitis, clinically stable, no angiograms. Tolerating nutrition well. The goal is to increase Jevity rate to 60 mL an hour. Once that is achieved, the patient can be discharged within the next 24 hours. In addition, a referral has been placed to [facility] to address her achalasia and the need for G-tube. Subjective Date/time seen: 02/01/25 07:22 Interval history: Patient tolerating increase nutrition rate very well. No abdominal pain, no requirement for analgesics. Objective Data Vital Signs Vital Signs: Vital Signs - 24 hr 01/31/25 07:59 01/31/25 14:00 01/31/25 20:00 Temperature 97.6 F Pulse Rate 102 H 107 H Respiratory Rate 17 20 Blood Pressure 147/120 H Pulse Oximetry 100 Oxygen Delivery Room Air Fraction of Inspired Oxygen 01/31/25 21:43 01/31/25 21:45 01/31/25 21:45 Temperature 97.9 F Pulse Rate 109 H 108 H 108 H Respiratory Rate 20 14 14 Blood Pressure 116/89 Pulse Oximetry 100 95 Oxygen Delivery Room Air Fraction of Inspired Oxygen 21 02/01/25 06:00 Temperature 96.7 F L Pulse Rate 104 H Respiratory Rate 20 Blood Pressure 157/93 H Pulse Oximetry 95 Oxygen Delivery Fraction of Inspired Oxygen Intake/Output Intake/Output: Intake & Output 01/29/25 01/30/25 01/31/25 02/01/25 23:59 23:59 23:59 23:59 Intake Total 2998.3 1406 2346.7 1000 Balance 2998.3 1406 2346.7 1000 Meds/Results Medications: Active Medications Generic Name Dose Route Start Last Admin Trade Name Freq PRN Reason Stop Dose Admin Acetaminophen 325 mg 01/28/25 13:08 Acetaminophen 325 Mg Tablet FEED TUBE Q4H PRN Pain 1-3 Hydrocodone Bitart/Acetaminophen 1 tab 01/30/25 17:00 02/01/25 00:03 Hydrocodone/Acetaminophen (*Crx) 10-325 Mg Tablet PO 1 tab Q8H DARRYN Administration Albuterol 2 puff 01/30/25 12:10 Albuterol Sulfate (*Sp) Aerosol 1 Puff INHALATION Q4HRT PRN Shortness Of Breath Alprazolam 1 mg 01/28/25 13:08 01/31/25 20:09 Alprazolam (*Crx) 0.5 Mg Tablet FEED TUBE 1 mg TID PRN Administration Anxiety Amlodipine Besylate 5 mg 01/30/25 09:00 01/31/25 09:55 Amlodipine Besylate 5 Mg Tablet FEED TUBE 5 mg DAILY DARRYN Administration Baclofen 10 mg 01/28/25 21:00 01/31/25 20:05 Baclofen 10 Mg Tablet FEED TUBE 10 mg Q12HR DARRYN Administration Diphenhydramine HCl 25 mg 01/28/25 13:08 01/29/25 21:05 Diphenhydramine Hcl Cap 25 Mg Capsule FEED TUBE 25 mg BID PRN Administration Itching Doxepin HCl 10 mg 01/28/25 21:00 01/31/25 20:04 Doxepin Hcl 10 Mg Capsule FEED TUBE 10 mg HS DARRYN Administration Famotidine 20 mg 01/28/25 09:00 01/31/25 20:04 Famotidine 20 Mg/2 Ml Vial IV PUSH 20 mg Q12HR DARRYN Administration Hydrocortisone 1 applic 01/28/25 13:17 Hydrocortisone 1% 30 Gm Cream TOPICAL QID PRN wound care Hydromorphone HCl 1 mg 01/30/25 15:07 Hydromorphone Hcl Inj (*Crx) 1 Mg/Ml Syr IV PUSH Q6H PRN Pain Rated 7-10 Lactated Ringer's 1,000 mls @ 100 mls/hr 01/28/25 07:35 02/01/25 06:14 Lr - Lactated Ringers Iv IV CONT 100 mls/hr .Q10H DARRYN Administration Labetalol HCl 10 mg 01/28/25 16:16 01/30/25 23:34 Labetalol Hcl Inj 100 Mg/20 Ml Vial IV PUSH 10 mg Q6H PRN Administration Hypertension Mirtazapine 15 mg 01/28/25 21:00 01/31/25 20:05 Mirtazapine Soltab 15 Mg Tab.Disper FEED TUBE 15 mg HS DARRYN Administration Ondansetron HCl 4 mg 01/28/25 13:09 Ondansetron Inj 4 Mg/2 Ml Vial IV PUSH Q6H PRN Nausea And Vomiting Quetiapine Fumarate 25 mg 01/29/25 09:00 01/31/25 09:55 Quetiapine Fumarate 25 Mg Tablet FEED TUBE 25 mg DAILY DARRYN Administration Quetiapine Fumarate 75 mg 01/28/25 21:00 01/31/25 20:05 Quetiapine Fumarate 25 Mg Tablet FEED TUBE 75 mg HS DARRYN Administration Quetiapine Fumarate 300 mg 01/28/25 21:00 01/31/25 20:04 Quetiapine Fumarate 100 Mg Tablet FEED TUBE 300 mg HS DARRYN Administration Fluticasone/Salmeterol 2 puff 01/28/25 20:00 01/31/25 21:45 Fluticasone/Salmeterol 115-21 Mcg Inhaler 1 Puff INHALATION 2 puff Q12HRT DARRYN Administration Radiology Results: ITS Impressions Abdomen/Pelvis CT 01/28/25 07:07 IMPRESSION: 1. Acute necrotic pancreatitis. 2. Wall thickening in the esophagus, consistent with edema versus esophagitis. 3. Mild intrahepatic and extrahepatic biliary duct dilatation status post cholecystectomy. MRCP 01/29/25 09:42 IMPRESSION: 1. Status post cholecystectomy with mild intrahepatic ductal or ductal dilation and moderately dilated common hepatic and bile ducts without evident obstructing stone or mass. 2. Acute interstitial pancreatitis with 1 cm nonenhancing region of likely parenchymal necrosis at the tail of the pancreas. 3. Extensive peripancreatic and retroperitoneal edema and small amount of likely reactive ascites in the pelvis. No abscess. 4. Wall thickening along the patulous fluid-filled esophagus which suggests esophagitis. 5.. Additional postoperative change of prior right mastectomy, percutaneous gastrostomy tube placement and surgical clips at the thoracic hiatus. Barium Swallow X-Ray 01/30/25 11:37 IMPRESSION: 1. Patulous esophagus with prominent dysmotility mid to distal esophagus likely secondary to chronic achalasia with delayed intermittent passage of small amounts of contrast beyond the gastroesophageal junction. Labs Labs: Laboratory Results - last 24 hr 01/31/25 01/31/25 01/31/25 06:02 11:32 16:26 POC Capillary Glucose 103 C-Reactive Protein 13.9 H Lipase 1277 H 01/31/25 02/01/25 02/01/25 17:57 00:30 06:20 POC Capillary Glucose 108 H 110 H 89 C-Reactive Protein Lipase
[2025-02-01 07:24] LABS: Hematocrit 36.6 % (37.0-47.0); Hemoglobin 12.3 g/dL (12.0-15.0); Mean Corpuscular HGB Conc 33.6 g/dl (32-36); Mean Corpuscular Hemoglobin 31.1 pg (26-34); Mean Corpuscular Volume 92.4 fl (80-100); Platelet Count Result 322 k/mm3 (150-375); Red Blood Count 3.96 M/mm3 (4.2-5.4); White Blood Count 11.5 K/mm3 (4.5-10.0)
[2025-02-01 07:50] LABS: Alanine Aminotransferase 25 U/L (6-35); Albumin Level 3.0 g/dL (3.5-5.1); Alkaline Phosphatase 154 U/L (38-126); Anion Gap 7 mmol/L (4-12); Aspartate Amino Transferase 66 U/L (14-36); Bilirubin,Total 0.6 mg/dL (0.2-1.3); Blood Urea Nitrogen 13 mg/dL (7-17); Calcium 8.2 mg/dL (8.4-10.2); Carbon Dioxide 19 mmol/L (22-30); Chloride 110 mmol/L (98-107); Estimated CRCL calculation 62 ml/min; Estimated Glomerular Filt Rate > 60; Glucose 86 mg/dL (65-110); Magnesium 1.8 mg/dL (1.6-2.3); Potassium 3.0 mmol/L (3.4-5.0); Sodium 136 mmol/L (137-145); Total Protein 6.8 g/dL (6.3-8.2)
[2025-02-01 08:12] VITALS: O2SAT 99
[2025-02-01] MEDS: FLUTICASONE/SALMETEROL 115-21 MCG INHALER 1 PUFF 2 PUFF INHALATION ×2 (08:12→21:07)
[2025-02-01 08:31] VITALS: BP 141/93; PULSE 104; RESP 16; TEMP 36.7; O2SAT 100
[2025-02-01 08:35] VITALS: PULSE 104; RESP 16; O2SAT 100
[2025-02-01] MEDS: BACLOFEN 10 MG TABLET FEED TUBE ×2 (08:35→20:43)
[2025-02-01] MEDS: FAMOTIDINE 20 MG/2 ML VIAL IV PUSH ×2 (08:35→20:43)
[2025-02-01 10:11] LABS: Lipase 1524 U/L (23-300)
[2025-02-01] MEDS: POTASSIUM CHLORIDE INJ 40 MEQ in SODIUM CHLORIDE 0.9% IV 500 ML 130 MEQ IVPB (10:35)
--- NOTE | 2025-02-01 10:40 | PCNFU ---
Nutrition Follow-Up Complete: Swallowing difficulty related to dysphagia as evidenced by need for tube feeding for sole source of nutrition. Goal:Meet estimated needs via tube feeding Tolerance of tube feeds Pt meeting goal. New goal: resume home tube feeding regimen Pt current nutrition is Jevity 1.5 @ 60ml/hr. Nutrition recommendation: Change hours to 5pm-8am (13hrs nocturnal) to match home regimen Last recorded weight is 58.7 kg. Bowel Motility: +BM 02/01 Labs Reviewed: HCT:36.6, Alb:3.0, NA:136, K:3.0, Cr:0.65 Meds Noted: lactated ringers, remeron Skin: WNL Additional Notes: Pt continues on tube feedings, increased to 40ml/hr overnight, to advance to 60ml/hr. Recommend to run nocturnal feeds (5pm-8am) per pt's home regimen. Monitor tube feeding, tolerance, wt, labs. Follow up every Tuesday and Tuesday
[2025-02-01] MEDS: ALPRAZolam (*CRX) 0.5 MG TABLET 1 MG FEED TUBE ×2 (10:46→16:23)
[2025-02-01 14:00] VITALS: BP 136/97; PULSE 103; RESP 18; TEMP 36.8; O2SAT 100
[2025-02-01 15:54] LABS: CRP 9.0 mg/dL (<1.0)
--- NOTE | 2025-02-01 15:59 | P.PNIM_ITS ---
Assessment and Plan Assessment and Plan (1) Acute pancreatitis: Qualifiers: Acute pancreatitis complication: uninfected necrosis Pancreatitis type: idiopathic Qualified Code(s): K85.01 - Idiopathic acute pancreatitis with uninfected necrosis Code(s): K85.90 - Acute pancreatitis without necrosis or infection, unspecified Status: Acute (2) Elevated LFTs: Code(s): R79.89 - Other specified abnormal findings of blood chemistry Status: Acute (3) Dilated cbd, acquired: Code(s): K83.8 - Other specified diseases of biliary tract Status: Acute (4) Abdominal pain: Qualifiers: Abdominal location: generalized Qualified Code(s): R10.84 - Generalized abdominal pain Code(s): R10.9 - Unspecified abdominal pain Status: Acute (5) Esophageal abnormality: Code(s): K22.9 - Disease of esophagus, unspecified Status: Acute (6) Gastrojejunal tube present: Code(s): Z93.1 - Gastrostomy status Status: Acute Plan Abdominal pain is little better today. Denies any nausea vomiting. patient with acute pancreatitis, no history of alcohol abuse, most likely idiopathic, Ct scan of the abdomen showed acute necrotic pancreatitis, upon arrival patient lipase levels were 7371 it is now trending down to 1392 and her clinical symptoms are improving, CT scan also showed wall thickening in the esophagus, consistent with edema versus esophagitis GI is concerning classic for achalasia and may need further evaluation at tertiary care. Patient also had XR barium swallow which showed patulous esophagus with prominent dysmotility mid to distal esophagus likely secondary to chronic achalasia with delayed intermittent passage of small amounts of contrast beyond the gastroesophageal junction. patient lipase are trending down to 1227 compared to when arrived 7371, however today slight higher than yesterday, seen by GI patient is tolerating her gtube feeding, once patient is able to take 60cc/hr and tolerate patient clinical symptoms are improving, possible discharge patient tomorrow. This is a 59-year-old female who presented with abdominal pain severe started last night. No nausea vomiting. No aggravating or alleviating factor. In the ED she was hypertensive otherwise afebrile. Laboratory studies showed WBC of 11.8 hemoglobin 15.1 platelet count 389. Sodium 137 potassium 3.2 chloride 104 bicarbonate 27 BUN 16 creatinine 0.7 blood glucose of 132 lactate 1.3 LFT showed total bilirubin of 0.6 AST 57 ALT 38 alkaline phosphatase 183. Lipase came back elevated at 7371. Urinalysis was negative for infection. CT abdomen pelvis showed acute necrotizing pancreatitis. Patient admitted in the setting for further treatment. Acute necrotizing pancreatitis IV fluid resuscitation as ordered. IV Dilaudid p.r.n. IV antiemetics. MRI/MRCP with no evident obstructing stone or mass. Acute interstitial pancreatitis with 1 cm nonenhancing region of likely parenchymal necrosis at the tail of pancreas. Wall thickening along the patulous fluid-filled esophagus with suggest esophagitis. Will start trickle tube feed today per G-tube. Speech to see for aspiration History of aspiration with failed MBS. Has been pleasure feeding. Will have speech see her Mild intrahepatic and extrahepatic biliary duct dilatation status post cholecystectomy MRI MRCP ordered Status post cholecystectomy Elevated LFTs Status post G-tube placement formal nutrition/aspiration. G-tube was exchanged by GI 01/29/2025 at bedside Esophagitis had ppi DVT prophylaxis Lovenox Code status full code Subjective Date/time seen: 02/01/25 15:59 Interval history: Abdominal pain is little better today. Denies any nausea vomiting. patient with acute pancreatitis, no history of alcohol abuse, most likely idiopathic, Ct scan of the abdomen showed acute necrotic pancreatitis, upon arrival patient lipase levels were 7371 it is now trending down to 1392 and her clinical symptoms are improving, CT scan also showed wall thickening in the esophagus, consistent with edema versus esophagitis GI is concerning classic for achalasia and may need further evaluation at tertiary care. Patient also had XR barium swallow which showed patulous esophagus with prominent dysmotility mid to distal esophagus likely secondary to chronic achalasia with delayed intermittent passage of small amounts of contrast beyond the gastroesophageal junction. patient lipase are trending down to 1227 compared to when arrived 7371, however today slight higher than yesterday, seen by GI patient is tolerating her gtube feeding, once patient is able to take 60cc/hr and tolerate patient clinical symptoms are improving, possible discharge patient tomorrow. Review of Systems Review of Systems: - CONSTITUTIONAL: Denies weight loss, fe dana and chills. - HEENT: Denies changes in vision and he aring - RESPIRATORY: Denies SOB and cough. - CV: Denies palpitations and CP. - GI: Reports abdominal pain, denies na usea, vomiting and diarrhea. - : Denies dysuria and urinary frequen cy. - MSK: Denies myalgia and joint pain. - SKIN: Denies rash and pruritus. - NEUROLOGICAL: Denies headache and sync ope. - PSYCHIATRIC: Denies recent changes in mood. Denies anxiety and depression. Exam Narrative: GENERAL: Well-appearing, well-nourished, not in acute distress HEAD: Normocephalic, atraumatic. EYES: PERRLA and EOMI. ENT: Nares clear, no rhinorrhea or epistaxis. Mucous membranes dry. NECK: Supple. CHEST: Clear to auscultation. No respiratory distress. HEART: Regular rate and rhythm. No murmur heard. Normal peripheral pulses. ABDOMEN: Soft, diffusely tender in epigastric area, nondistended, normal active bowel sounds. G-tube in place EXTREMITIES: Normal range of motion. No edema. SKIN: Warm, dry, no rash. NEURO: No focal deficits. Alert and oriented x3. PSYCH: Normal mood and affect. Objective Data Vital Signs Vital Signs: Vital Signs - 24 hr 01/31/25 20:00 01/31/25 21:43 01/31/25 21:45 Temperature 36.6 C Pulse Rate 109 H 108 H Respiratory Rate 20 14 Blood Pressure 116/89 Pulse Oximetry 100 95 Oxygen Delivery Room Air Room Air Fraction of Inspired Oxygen 21 01/31/25 21:45 02/01/25 06:00 02/01/25 08:12 Temperature 35.9 C L Pulse Rate 108 H 104 H Respiratory Rate 14 20 Blood Pressure 157/93 H Pulse Oximetry 95 99 Oxygen Delivery Room Air Fraction of Inspired Oxygen 02/01/25 08:31 02/01/25 08:35 02/01/25 14:00 Temperature 36.7 C 36.8 C Pulse Rate 104 H 104 H 103 H Respiratory Rate 16 16 18 Blood Pressure 141/93 H 136/97 H Pulse Oximetry 100 100 100 Oxygen Delivery Room Air Fraction of Inspired Oxygen Intake/Output Intake/Output: Intake & Output 01/29/25 01/30/25 01/31/25 02/01/25 23:59 23:59 23:59 23:59 Intake Total 2998.3 1406 2346.7 1120 Balance 2998.3 1406 2346.7 1120 Meds/Results Medications: Active Medications Generic Name Dose Route Start Last Admin Trade Name Freq PRN Reason Stop Dose Admin Acetaminophen 325 mg 01/28/25 13:08 Acetaminophen 325 Mg Tablet FEED TUBE Q4H PRN Pain 1-3 Hydrocodone Bitart/Acetaminophen 1 tab 01/30/25 17:00 02/01/25 08:35 Hydrocodone/Acetaminophen (*Crx) 10-325 Mg Tablet PO 1 tab Q8H DARRYN Administration Albuterol 2 puff 01/30/25 12:10 Albuterol Sulfate (*Sp) Aerosol 1 Puff INHALATION Q4HRT PRN Shortness Of Breath Alprazolam 1 mg 01/28/25 13:08 02/01/25 10:46 Alprazolam (*Crx) 0.5 Mg Tablet FEED TUBE 1 mg TID PRN Administration Anxiety Amlodipine Besylate 5 mg 01/30/25 09:00 02/01/25 08:35 Amlodipine Besylate 5 Mg Tablet FEED TUBE 5 mg DAILY DARRYN Administration Baclofen 10 mg 01/28/25 21:00 02/01/25 08:35 Baclofen 10 Mg Tablet FEED TUBE 10 mg Q12HR DARRYN Administration Diphenhydramine HCl 25 mg 01/28/25 13:08 01/29/25 21:05 Diphenhydramine Hcl Cap 25 Mg Capsule FEED TUBE 25 mg BID PRN Administration Itching Doxepin HCl 10 mg 01/28/25 21:00 01/31/25 20:04 Doxepin Hcl 10 Mg Capsule FEED TUBE 10 mg HS DARRYN Administration Famotidine 20 mg 01/28/25 09:00 02/01/25 08:35 Famotidine 20 Mg/2 Ml Vial IV PUSH 20 mg Q12HR DARRYN Administration Hydrocortisone 1 applic 01/28/25 13:17 Hydrocortisone 1% 30 Gm Cream TOPICAL QID PRN wound care Hydromorphone HCl 1 mg 01/30/25 15:07 Hydromorphone Hcl Inj (*Crx) 1 Mg/Ml Syr IV PUSH Q6H PRN Pain Rated 7-10 Lactated Ringer's 1,000 mls @ 100 mls/hr 01/28/25 07:35 02/01/25 06:14 Lr - Lactated Ringers Iv IV CONT 100 mls/hr .Q10H DARRYN Administration Labetalol HCl 10 mg 01/28/25 16:16 01/30/25 23:34 Labetalol Hcl Inj 100 Mg/20 Ml Vial IV PUSH 10 mg Q6H PRN Administration Hypertension Mirtazapine 15 mg 01/28/25 21:00 01/31/25 20:05 Mirtazapine Soltab 15 Mg Tab.Disper FEED TUBE 15 mg HS DARRYN Administration Ondansetron HCl 4 mg 01/28/25 13:09 Ondansetron Inj 4 Mg/2 Ml Vial IV PUSH Q6H PRN Nausea And Vomiting Quetiapine Fumarate 25 mg 01/29/25 09:00 02/01/25 08:35 Quetiapine Fumarate 25 Mg Tablet FEED TUBE 25 mg DAILY DARRYN Administration Quetiapine Fumarate 75 mg 01/28/25 21:00 01/31/25 20:05 Quetiapine Fumarate 25 Mg Tablet FEED TUBE 75 mg HS DARRYN Administration Quetiapine Fumarate 300 mg 01/28/25 21:00 01/31/25 20:04 Quetiapine Fumarate 100 Mg Tablet FEED TUBE 300 mg HS DARRYN Administration Fluticasone/Salmeterol 2 puff 01/28/25 20:00 02/01/25 08:12 Fluticasone/Salmeterol 115-21 Mcg Inhaler 1 Puff INHALATION 2 puff Q12HRT DARRYN Administration Radiology Results: ITS Impressions Abdomen/Pelvis CT 01/28/25 07:07 IMPRESSION: 1. Acute necrotic pancreatitis. 2. Wall thickening in the esophagus, consistent with edema versus esophagitis. 3. Mild intrahepatic and extrahepatic biliary duct dilatation status post cholecystectomy. MRCP 01/29/25 09:42 IMPRESSION: 1. Status post cholecystectomy with mild intrahepatic ductal or ductal dilation and moderately dilated common hepatic and bile ducts without evident obstructing stone or mass. 2. Acute interstitial pancreatitis with 1 cm nonenhancing region of likely parenchymal necrosis at the tail of the pancreas. 3. Extensive peripancreatic and retroperitoneal edema and small amount of likely reactive ascites in the pelvis. No abscess. 4. Wall thickening along the patulous fluid-filled esophagus which suggests esophagitis. 5.. Additional postoperative change of prior right mastectomy, percutaneous gastrostomy tube placement and surgical clips at the thoracic hiatus. Barium Swallow X-Ray 01/30/25 11:37 IMPRESSION: 1. Patulous esophagus with prominent dysmotility mid to distal esophagus likely secondary to chronic achalasia with delayed intermittent passage of small amounts of contrast beyond the gastroesophageal junction. Labs Labs: Laboratory Results - last 24 hr 01/31/25 01/31/25 02/01/25 16:26 17:57 00:30 WBC RBC Hgb Hct MCV MCH MCHC RDW Plt Count MPV Sodium Potassium Chloride Carbon Dioxide Anion Gap BUN Creatinine Estim Creat Clear Calc Estimated GFR Glucose POC Capillary Glucose 108 H 110 H Calcium Magnesium Total Bilirubin AST ALT Alkaline Phosphatase C-Reactive Protein 13.9 H Total Protein Albumin Lipase 02/01/25 02/01/25 02/01/25 06:20 07:03 07:06 WBC 11.5 H RBC 3.96 L Hgb 12.3 Hct 36.6 L MCV 92.4 MCH 31.1 MCHC 33.6 RDW 16.1 H Plt Count 322 MPV 9.8 Sodium 136 L Potassium 3.0 L Chloride 110 H Carbon Dioxide 19 L Anion Gap 7 BUN 13 Creatinine 0.65 L Estim Creat Clear Calc 62 Estimated GFR > 60 Glucose 86 POC Capillary Glucose 89 Calcium 8.2 L Magnesium 1.8 Total Bilirubin 0.6 AST 66 H ALT 25 Alkaline Phosphatase 154 H C-Reactive Protein 9.0 H Total Protein 6.8 Albumin 3.0 L Lipase 1524 H 02/01/25 02/01/25 07:42 11:41 WBC RBC Hgb Hct MCV MCH MCHC RDW Plt Count MPV Sodium Potassium Chloride Carbon Dioxide Anion Gap BUN Creatinine Estim Creat Clear Calc Estimated GFR Glucose POC Capillary Glucose 89 95 Calcium Magnesium Total Bilirubin AST ALT Alkaline Phosphatase C-Reactive Protein Total Protein Albumin Lipase
[2025-02-01 19:33] VITALS: BP 139/95; PULSE 87; RESP 18; TEMP 37; O2SAT 96
[2025-02-01] MEDS: DOXEPIN HCL 10 MG CAPSULE FEED TUBE (20:44)
[2025-02-01] MEDS: MIRTAZAPINE SOLTAB 15 MG TAB.DISPER FEED TUBE (20:44)
[2025-02-02] MEDS: ALPRAZolam (*CRX) 0.5 MG TABLET 1 MG FEED TUBE ×2 (00:03→08:25)
[2025-02-02 05:49] VITALS: BP 149/101; PULSE 87; RESP 18; TEMP 36.7; O2SAT 98
[2025-02-02 06:25] LABS: Hematocrit 38.3 % (37.0-47.0); Hemoglobin 13.0 g/dL (12.0-15.0); Mean Corpuscular HGB Conc 33.9 g/dl (32-36); Mean Corpuscular Hemoglobin 31.2 pg (26-34); Mean Corpuscular Volume 91.8 fl (80-100); Platelet Count Result 334 k/mm3 (150-375); Red Blood Count 4.17 M/mm3 (4.2-5.4); White Blood Count 8.5 K/mm3 (4.5-10.0)
[2025-02-02 06:52] LABS: Alanine Aminotransferase 32 U/L (6-35); Albumin Level 3.3 g/dL (3.5-5.1); Alkaline Phosphatase 187 U/L (38-126); Anion Gap 8 mmol/L (4-12); Aspartate Amino Transferase 87 U/L (14-36); Bilirubin,Total 0.5 mg/dL (0.2-1.3); Blood Urea Nitrogen 13 mg/dL (7-17); Calcium 8.7 mg/dL (8.4-10.2); Carbon Dioxide 22 mmol/L (22-30); Chloride 106 mmol/L (98-107); Estimated CRCL calculation 63 ml/min; Estimated Glomerular Filt Rate > 60; Glucose 94 mg/dL (65-110); Lipase 1574 U/L (23-300); Magnesium 1.5 mg/dL (1.6-2.3); Potassium 3.4 mmol/L (3.4-5.0); Sodium 136 mmol/L (137-145); Total Protein 7.4 g/dL (6.3-8.2)
[2025-02-02 08:00] VITALS: PULSE 87; RESP 18; O2SAT 98
[2025-02-02] MEDS: FLUTICASONE/SALMETEROL 115-21 MCG INHALER 1 PUFF 2 PUFF INHALATION (08:02)
[2025-02-02] MEDS: LACTATED RINGERS 1,000 ML 100 ML IV CONT (08:25)
[2025-02-02] MEDS: FAMOTIDINE 20 MG/2 ML VIAL IV PUSH (08:26)
[2025-02-02] MEDS: HYDROcodone/acetaminophen (*CRX) 10-325 MG TABLET 1 TAB PO (08:26)
[2025-02-02] MEDS: BACLOFEN 10 MG TABLET FEED TUBE (08:26)
[2025-02-02] MEDS: MAGNESIUM SULF 2 GM/WATER 50ML 2 GM/50 ML BAG IVPB (09:23)
--- NOTE | 2025-02-02 10:08 | WPDGIPROGNO ---
Progress Note: A&P Assessment and Plan (1) Acute pancreatitis: Qualifiers: Acute pancreatitis complication: uninfected necrosis Pancreatitis type: idiopathic Qualified Code(s): K85.01 - Idiopathic acute pancreatitis with uninfected necrosis Code(s): K85.90 - Acute pancreatitis without necrosis or infection, unspecified Status: Acute Assessment and Plan: no major changes still some discomfort but now tolerating tube feeding at goal she would rather go home if possible with pain meds no need to repeat lipase but will need follow-up in office (2) Abdominal pain: Qualifiers: Abdominal location: generalized Qualified Code(s): R10.84 - Generalized abdominal pain Code(s): R10.9 - Unspecified abdominal pain Status: Acute (3) Gastrostomy tube in place: Code(s): Z93.1 - Gastrostomy status Status: Acute (4) Achalasia: Code(s): K22.0 - Achalasia of cardia Status: Acute Assessment and Plan: referral to [facility] was obtained- this will need to be managed in near future and apparently is reason why she has PEG tube Subjective Date/time seen: 02/02/25 10:08 Interval history: still bloating and abdominal discomfort but tolerating tube feeding at 60 ml/h by G-tube Review of Systems Review of Systems: All systems reviewed & are unremarkable except as noted in HPI and below Exam Narrative: GENERAL: Well-appearing, well-nourished, not in acute distress HEAD: Normocephalic, atraumatic. EYES: PERRLA and EOMI. ENT: Nares clear, no rhinorrhea or epistaxis. Mucous membranes dry. NECK: Supple. CHEST: Clear to auscultation. No respiratory distress. HEART: Regular rate and rhythm. No murmur heard. Normal peripheral pulses. ABDOMEN: Soft, diffusely tender in epigastric area, nondistended, normal active bowel sounds. G-tube in place EXTREMITIES: Normal range of motion. No edema. SKIN: Warm, dry, no rash. NEURO: No focal deficits. Alert and oriented x3. PSYCH: Normal mood and affect. Objective Data Vital Signs Vital Signs: Vital Signs - 24 hr 02/01/25 14:00 02/01/25 19:33 02/01/25 20:55 Temperature 98.3 F 98.6 F Pulse Rate 103 H 87 Respiratory Rate 18 18 Blood Pressure 136/97 H 139/95 H Pulse Oximetry 100 96 Oxygen Delivery Room Air 02/02/25 05:49 Temperature 98.1 F Pulse Rate 87 Respiratory Rate 18 Blood Pressure 149/101 H Pulse Oximetry 98 Oxygen Delivery Intake/Output Intake/Output: Intake & Output 01/30/25 01/31/25 02/01/25 02/02/25 23:59 23:59 23:59 23:59 Intake Total 1406 2346.7 2120 1000 Balance 1406 2346.7 2120 1000 Meds/Results Medications: Active Medications Generic Name Dose Route Start Last Admin Trade Name Freq PRN Reason Stop Dose Admin Acetaminophen 325 mg 01/28/25 13:08 Acetaminophen 325 Mg Tablet FEED TUBE Q4H PRN Pain 1-3 Hydrocodone Bitart/Acetaminophen 1 tab 01/30/25 17:00 02/02/25 08:26 Hydrocodone/Acetaminophen (*Crx) 10-325 Mg Tablet PO 1 tab Q8H DARRYN Administration Albuterol 2 puff 01/30/25 12:10 Albuterol Sulfate (*Sp) Aerosol 1 Puff INHALATION Q4HRT PRN Shortness Of Breath Alprazolam 1 mg 01/28/25 13:08 02/02/25 08:25 Alprazolam (*Crx) 0.5 Mg Tablet FEED TUBE 1 mg TID PRN Administration Anxiety Amlodipine Besylate 5 mg 01/30/25 09:00 02/02/25 08:26 Amlodipine Besylate 5 Mg Tablet FEED TUBE 5 mg DAILY DARRYN Administration Baclofen 10 mg 01/28/25 21:00 02/02/25 08:26 Baclofen 10 Mg Tablet FEED TUBE 10 mg Q12HR DARRYN Administration Diphenhydramine HCl 25 mg 01/28/25 13:08 01/29/25 21:05 Diphenhydramine Hcl Cap 25 Mg Capsule FEED TUBE 25 mg BID PRN Administration Itching Doxepin HCl 10 mg 01/28/25 21:00 02/01/25 20:44 Doxepin Hcl 10 Mg Capsule FEED TUBE 10 mg HS DARRYN Administration Famotidine 20 mg 01/28/25 09:00 02/02/25 08:26 Famotidine 20 Mg/2 Ml Vial IV PUSH 20 mg Q12HR DARRYN Administration Hydrocortisone 1 applic 01/28/25 13:17 Hydrocortisone 1% 30 Gm Cream TOPICAL QID PRN wound care Hydromorphone HCl 1 mg 01/30/25 15:07 Hydromorphone Hcl Inj (*Crx) 1 Mg/Ml Syr IV PUSH Q6H PRN Pain Rated 7-10 Lactated Ringer's 1,000 mls @ 100 mls/hr 01/28/25 07:35 02/02/25 08:25 Lr - Lactated Ringers Iv IV CONT 100 mls/hr .Q10H DARRYN Administration Potassium Chloride 40 meq/ 520 mls @ 130 mls/hr 02/02/25 08:43 Sodium Chloride IVPB 02/02/25 12:42 ONCE ONE Labetalol HCl 10 mg 01/28/25 16:16 01/30/25 23:34 Labetalol Hcl Inj 100 Mg/20 Ml Vial IV PUSH 10 mg Q6H PRN Administration Hypertension Mirtazapine 15 mg 01/28/25 21:00 02/01/25 20:44 Mirtazapine Soltab 15 Mg Tab.Disper FEED TUBE 15 mg HS DARRYN Administration Ondansetron HCl 4 mg 01/28/25 13:09 Ondansetron Inj 4 Mg/2 Ml Vial IV PUSH Q6H PRN Nausea And Vomiting Quetiapine Fumarate 25 mg 01/29/25 09:00 02/02/25 08:26 Quetiapine Fumarate 25 Mg Tablet FEED TUBE 25 mg DAILY DARRYN Administration Quetiapine Fumarate 75 mg 01/28/25 21:00 02/01/25 20:44 Quetiapine Fumarate 25 Mg Tablet FEED TUBE 75 mg HS DARRYN Administration Quetiapine Fumarate 300 mg 01/28/25 21:00 02/01/25 20:44 Quetiapine Fumarate 100 Mg Tablet FEED TUBE 300 mg HS DARRYN Administration Fluticasone/Salmeterol 2 puff 01/28/25 20:00 02/02/25 08:02 Fluticasone/Salmeterol 115-21 Mcg Inhaler 1 Puff INHALATION 2 puff Q12HRT DARRYN Administration Radiology Results: ITS Impressions Abdomen/Pelvis CT 01/28/25 07:07 IMPRESSION: 1. Acute necrotic pancreatitis. 2. Wall thickening in the esophagus, consistent with edema versus esophagitis. 3. Mild intrahepatic and extrahepatic biliary duct dilatation status post cholecystectomy. MRCP 01/29/25 09:42 IMPRESSION: 1. Status post cholecystectomy with mild intrahepatic ductal or ductal dilation and moderately dilated common hepatic and bile ducts without evident obstructing stone or mass. 2. Acute interstitial pancreatitis with 1 cm nonenhancing region of likely parenchymal necrosis at the tail of the pancreas. 3. Extensive peripancreatic and retroperitoneal edema and small amount of likely reactive ascites in the pelvis. No abscess. 4. Wall thickening along the patulous fluid-filled esophagus which suggests esophagitis. 5.. Additional postoperative change of prior right mastectomy, percutaneous gastrostomy tube placement and surgical clips at the thoracic hiatus. Barium Swallow X-Ray 01/30/25 11:37 IMPRESSION: 1. Patulous esophagus with prominent dysmotility mid to distal esophagus likely secondary to chronic achalasia with delayed intermittent passage of small amounts of contrast beyond the gastroesophageal junction. Labs Labs: Laboratory Results - last 24 hr 02/01/25 02/01/25 02/01/25 07:03 07:06 11:41 WBC RBC Hgb Hct MCV MCH MCHC RDW Plt Count MPV Sodium Potassium Chloride Carbon Dioxide Anion Gap BUN Creatinine Estim Creat Clear Calc Estimated GFR Glucose POC Capillary Glucose 95 Calcium Magnesium Total Bilirubin AST ALT Alkaline Phosphatase C-Reactive Protein 9.0 H Total Protein Albumin Lipase 1524 H 02/01/25 02/02/25 02/02/25 19:31 05:48 06:14 WBC 8.5 RBC 4.17 L Hgb 13.0 Hct 38.3 MCV 91.8 MCH 31.2 MCHC 33.9 RDW 16.5 H Plt Count 334 MPV 9.5 Sodium 136 L Potassium 3.4 Chloride 106 Carbon Dioxide 22 Anion Gap 8 BUN 13 Creatinine 0.64 L Estim Creat Clear Calc 63 Estimated GFR > 60 Glucose 94 POC Capillary Glucose 96 85 Calcium 8.7 Magnesium 1.5 L Total Bilirubin 0.5 AST 87 H ALT 32 Alkaline Phosphatase 187 H C-Reactive Protein Total Protein 7.4 Albumin 3.3 L Lipase 1574 H
--- NOTE | 2025-02-02 12:58 | P.DS_ITS ---
DS: Admitting Diagnosis Discharge Date 02/02/25 Admitting Diagnosis Abdominal pain DS: Discharge Diagnosis Discharge Diagnosis (1) Low back pain: Code(s): M54.5 - Low back pain Status: Acute (2) Cancer-related pain: Code(s): G89.3 - Neoplasm related pain (acute) (chronic) Status: Acute Plan Abdominal pain is little better today. Denies any nausea vomiting. patient with acute pancreatitis, no history of alcohol abuse, most likely idiopathic, Ct scan of the abdomen showed acute necrotic pancreatitis, upon arrival patient lipase levels were 7371 it is now trending down to 1392 and her clinical symptoms are improving, CT scan also showed wall thickening in the esophagus, consistent with edema versus esophagitis GI is concerning classic for achalasia and may need further evaluation at tertiary care. Patient also had XR barium swallow which showed patulous esophagus with prominent dysmotility mid to distal esophagus likely secondary to chronic achalasia with delayed intermittent passage of small amounts of contrast beyond the gastroesophageal junction. patient lipase are trending down to 1227 compared to when arrived 7371, however today slight higher than yesterday, seen by GI patient is tolerating her gtube feeding, once patient is able to take 60cc/hr and tolerate patient clinical symptoms are improving, possible discharge patient tomorrow. This is a 59-year-old female who presented with abdominal pain severe started last night. No nausea vomiting. No aggravating or alleviating factor. In the ED she was hypertensive otherwise afebrile. Laboratory studies showed WBC of 11.8 hemoglobin 15.1 platelet count 389. Sodium 137 potassium 3.2 chloride 104 bicarbonate 27 BUN 16 creatinine 0.7 blood glucose of 132 lactate 1.3 LFT showed total bilirubin of 0.6 AST 57 ALT 38 alkaline phosphatase 183. Lipase came back elevated at 7371. Urinalysis was negative for infection. CT abdomen pelvis showed acute necrotizing pancreatitis. Patient admitted in the setting for further treatment. Acute necrotizing pancreatitis IV fluid resuscitation as ordered. IV Dilaudid p.r.n. IV antiemetics. MRI/MRCP with no evident obstructing stone or mass. Acute interstitial pancreatitis with 1 cm nonenhancing region of likely parenchymal necrosis at the tail of pancreas. Wall thickening along the patulous fluid-filled esophagus with suggest esophagitis. Will start trickle tube feed today per G-tube. Speech to see for aspiration History of aspiration with failed MBS. Has been pleasure feeding. Will have speech see her Mild intrahepatic and extrahepatic biliary duct dilatation status post cholecystectomy MRI MRCP ordered Status post cholecystectomy Elevated LFTs Status post G-tube placement formal nutrition/aspiration. G-tube was exchanged by GI 01/29/2025 at bedside Esophagitis had ppi DVT prophylaxis Lovenox Code status full code DS: Summary Hospital Course Hospital Course: Abdominal pain is little better today. Denies any nausea vomiting. patient with acute pancreatitis, no history of alcohol abuse, most likely idiopathic, Ct scan of the abdomen showed acute necrotic pancreatitis, upon arrival patient lipase levels were 7371 it is now trending down to 1392 and her clinical symptoms are improving, CT scan also showed wall thickening in the esophagus, consistent with edema versus esophagitis GI is concerning classic for achalasia and may need further evaluation at tertiary care. Patient also had XR barium swallow which showed patulous esophagus with prominent dysmotility mid to distal esophagus likely secondary to chronic achalasia with delayed intermittent passage of small amounts of contrast beyond the gastroesophageal junction. patient lipase are trending down to 1227 compared to when arrived 7371, however today slight higher than yesterday, seen by GI patient is tolerating her gtube feeding, once patient is able to take 60cc/hr and tolerate patient clinical symptoms are improving, possible discharge patient tomorrow. patient pancratitis has improved and able tolerated her Gtub feeding 60cc per hour, will discharge patient today. Time Spent with Patient Time attestation: Total time spent providing and/or coordinating discharge services: Exam Narrative: GENERAL: Well-appearing, well-nourished, not in acute distress HEAD: Normocephalic, atraumatic. EYES: PERRLA and EOMI. ENT: Nares clear, no rhinorrhea or epistaxis. Mucous membranes dry. NECK: Supple. CHEST: Clear to auscultation. No respiratory distress. HEART: Regular rate and rhythm. No murmur heard. Normal peripheral pulses. ABDOMEN: Soft, diffusely tender in epigastric area, nondistended, normal active bowel sounds. G-tube in place EXTREMITIES: Normal range of motion. No edema. SKIN: Warm, dry, no rash. NEURO: No focal deficits. Alert and oriented x3. PSYCH: Normal mood and affect. DS: Data Data Completed and Pending Labs on day of discharge: Labs from last 24 hours 02/02/25 02/02/25 02/01/25 06:14 05:48 19:31 WBC 8.5 RBC 4.17 L Hgb 13.0 Hct 38.3 MCV 91.8 MCH 31.2 MCHC 33.9 RDW 16.5 H Plt Count 334 MPV 9.5 Sodium 136 L Potassium 3.4 Chloride 106 Carbon Dioxide 22 Anion Gap 8 BUN 13 Creatinine 0.64 L Estim Creat Clear Calc 63 Estimated GFR > 60 Glucose 94 POC Capillary Glucose 85 96 Calcium 8.7 Magnesium 1.5 L Total Bilirubin 0.5 AST 87 H ALT 32 Alkaline Phosphatase 187 H C-Reactive Protein Total Protein 7.4 Albumin 3.3 L Lipase 1574 H 02/01/25 07:03 WBC RBC Hgb Hct MCV MCH MCHC RDW Plt Count MPV Sodium Potassium Chloride Carbon Dioxide Anion Gap BUN Creatinine Estim Creat Clear Calc Estimated GFR Glucose POC Capillary Glucose Calcium Magnesium Total Bilirubin AST ALT Alkaline Phosphatase C-Reactive Protein 9.0 H Total Protein Albumin Lipase Discharge Plan Discharge Attending physician on discharge: Sebas Alba Consulting providers: Ashu Nix; Vitor Winters; Alejandra Thomas; Jag Arreguin; Shahid Olmedo V.; Leno Mckeon Discharging Clinician: Ronaldo Savage Patient Disposition: SNF Activity: as tolerated Diet: tube feeding Discharge Instructions: Patient to follow up with her primary care provider and GI as scheduled, patient is scheduled to follow up with the GI at [facility]. patient is instructed if any symptoms redevelop to go to nearest ER. Patient Instructions: Antibiotic Form Patient Language: Salvadorean Stand Alone Forms: General Discharge Information Follow-up/Referrals: Mary,Steven Toney [Primary Care Provider] Ashu Nix MD [Physician, Gastroenterology] Discharge Medications: Continued baclofen 10 mg tablet 10 mg feeding tube BID diphenhydramine HCl [Aler-Cap] 25 mg capsule 25 mg feeding tube BID PRN (Reason: itching) acetaminophen 325 mg capsule 325 mg feeding tube Q4H PRN (Reason: pain) fluticasone furoate-vilanterol [Breo Ellipta] 100-25 mcg/dose blister with device 1 inh INHALATION Q24H doxepin 10 mg capsule 10 mg feeding tube HS hydrocortisone 0.5 % cream 1 applic TOPICAL QID PRN (Reason: wound care) Patient Comments: apply small amount to wounds during wound care ibuprofen [IBU] 600 mg tablet 600 mg feeding tube TID PRN (Reason: pain) mirtazapine 15 mg tablet,disintegrating 15 mg feeding tube HS quetiapine 25 mg tablet 25 mg feeding tube DAILY quetiapine 300 mg tablet 300 mg feeding tube HS Patient Comments: total 375 mg at hs quetiapine 25 mg tablet 75 mg feeding tube HS Patient Comments: total 375 mg at hs albuterol sulfate [Ventolin HFA] 90 mcg/actuation HFA aerosol inhaler 2 inh INHALATION Q4H alprazolam [Xanax] 1 mg tablet 1 mg feeding tube TID PRN (Reason: anxiety) Qty: 10 0RF hydrocodone-acetaminophen 10-325 mg tablet 1 tablet feeding tube Q8H Qty: 10 0RF Date of admission: 01/28/25 07:34 Primary Care Provider: MaryDawna Admitting Provider: Sebas Alba Attending physician on admission: Ronaldo Savage Condition: Stable
[2025-02-02] MEDS: POTASSIUM CHLORIDE 20 MEQ PACKET (FOR LIQUID) 40 MEQ PO (13:10)
[2025-02-02 14:00] VITALS: BP 140/89; PULSE 92; RESP 16; TEMP 36.6; O2SAT 100
== END 2025-02-02 16:20 | DRG 440 ==
LOC: ANHED 08:23 → ANHIMU 10:52 → ANH3MEDSUR 01-29 22:37
PROVIDERS: Emergency Medicine; Internal Medicine Gastroenterology; Admitting Provider Internal Medicine; Emergency Provider Emergency Medicine; PCP Internal Medicine; Visit Provider Family Medicine
DX: K85.01 Idiopathic acute pancreatitis with uninfected necrosis (principal); K22.0 Achalasia of cardia; K83.8 Other specified diseases of biliary tract; K22.9 Disease of esophagus, unspecified; E87.6 Hypokalemia; R79.89 Other specified abnormal findings of blood chemistry; M54.9 Dorsalgia, unspecified; G89.29 Other chronic pain; Z93.1 Gastrostomy status; Z72.0 Tobacco use; Z85.3 Personal history of malignant neoplasm of breast
CPT/HCPCS: 36415; 74177; 74183; 74220; 76376; 80053; 81001; 82948; 83605; 83690; 83735; 84145; 85025; 85027; 86140; 94640; 96361; 96374; 96375; 96376; 99285; A9270; A9577; J1171; J1790; J2270; J2405; J2470; J3475; J3480; J7030; J7040; J7120; Q9967